=== PATIENT | female | born 1995 | race Caucasian/White ===

== ENCOUNTER 2017-03-27 19:24 | Emergency (ER) | payer OTHER ==
--- NOTE | 2017-03-27 20:14 | PDOC ---
Rapid Medical Evaluation Chief Complaint: Allergic Reaction Time Seen by Provider: 03/27/17 20:14 Medical Evaluation: Allergies Allergy/AdvReac Type Severity Reaction Status Date / Time No Known Allergies Allergy Verified 04/30/16 23:23 03/27/17 20:12 I Have performed a brief in-person evaluation of this patient. c/o hives to b/l axila while in running in the Gym. benedryl 2 tabs prior to arrival. pertinent physical exam findings: patient alert ox3, hives to b/l axila. no oral swelling , breath sounds clear. I have ordered the following: none the patient will proceed to the ED for further evaluation.
--- NOTE | 2017-03-27 20:20 | PDOC ---
History of Present Illness - General Chief Complaint: Allergic Reaction Stated Complaint: RASH Time Seen by Provider: 03/27/17 20:14 History Source: Patient Exam Limitations: No Limitations - History of Present Illness Initial Comments: 03/27/17 20:15 21 year old female c/o hives to b/l axilla prior to arrival. symptoms improved after Benadryl. symptoms have improved since arrival. Timing/Duration: reports: just prior to arrival Past History - Past Medical History Allergies/Adverse Reactions: Allergies Allergy/AdvReac Type Severity Reaction Status Date / Time No Known Allergies Allergy Verified 04/30/16 23:23 Home Medications: Ambulatory Orders NK [No Known Home Medication] 04/30/16 Other medical history: denies - Suicide/Smoking/Psychosocial Hx Smoking History: Never smoked Review of Systems - Review of Systems Able to Perform ROS?: Yes Is the patient limited Amharic proficient: No Constitutional: No: Symptoms Reported, See HPI, Chills, Diaphoresis, Fever, Loss of Appetite, Malaise, Night Sweats, Weakness, Weight Stable, Unintentional Wgt. Loss, Unexplained wgt Loss, Other Respiratory: No: Symptoms reported, See HPI, Cough, Orthopnea, Shortness of Breath, SOB with Exertion, SOB at Rest, Stridor, Wheezing, Productive cough, Hemoptysis, Other Neurological: Yes: Other (hives) Psychiatric: No: Anxiety, Depression, Frequent Crying, Stressors, Sleep Pattern Change, Emotional Problems, Mood Swings, Change in Appetite, Other *Physical Exam - Physical Exam General Appearance: Yes: Appropriately Dressed HEENT: positive: Other (uvula midline. no oral swelling) Respiratory/Chest: positive: Lungs Clear, Normal Breath Sounds Cardiovascular: positive: Regular Rhythm, Regular Rate Extremity: positive: Other (hives to axila) Integumentary: positive: Normal Color, Dry, Warm Neurologic: positive: Fully Oriented, Alert, Normal Mood/Affect Progress Note - Progress Note Progress Note: A: allergic reactions P; benadryl prn claritin prn *DC/Admit/Observation/Transfer Diagnosis at time of Disposition: Allergic reaction Qualifiers: Encounter type: initial encounter Qualified Code(s): T78.40XA - Allergy, unspecified, initial encounter - Discharge Dispostion Disposition: HOME - Referrals Referrals: Nura Britton MD [Primary Care Provider] - - Patient Instructions Printed Discharge Instructions: DI for Adverse Drug Reaction -- Allergic Additional Instructions: take benedryl every 8 hours as needed take claritin once daily. follow up with your doctor. retunr to the ED if symptoms worsen. - Post Discharge Activity
[2017-03-27 20:24] VITALS: BP 128/69; PULSE 71; TEMP 97.9; BMI 29.2
== END 2017-03-27 20:28 | disposition home or self-care (01) ==
LOC: JER 19:24
DX: L50.0 Allergic urticaria (principal); T78.40XA Allergy, unspecified, initial encounter
CPT/HCPCS: 99282-25

== ENCOUNTER 2018-07-04 17:59 | Emergency (ER) | payer OTHER ==
[2018-07-04 18:05] VITALS: BP 115/73; PULSE 66; TEMP 97.9; BMI 29.2
[2018-07-04] MEDS ORDERED: SODIUM CHLORIDE 1,000 ML IV STA (20:03)
[2018-07-04] MEDS ORDERED: ONDANSETRON 4 MG/2 ML VIAL IVPUSH ONE (20:03)
[2018-07-04] MEDS ORDERED: ONDANSETRON 4 MG/2 ML VIAL ONE (20:27)
[2018-07-04 20:38] LABS: BASO % 0.5 % (0-2.0); EOS % 1.3 % (0-4.5); HEMATOCRIT 36.1 % (32.4-45.2); HEMOGLOBIN 12.4 GM/dL (10.7-15.3); LYMPH % 32.2 % (8-40); MCH 30.8 pg (25.7-33.7); MCHC 34.4 g/dl (32.0-36.0); MEAN CELL VOLUME 89.6 fl (80-96); MEAN PLT VOLUME 8.5 fl (7.5-11.1); MONO % 6.4 % (3.8-10.2); NEUT % 59.6 % (42.8-82.8); PLATELET COUNT 230 K/MM3 (134-434); RBC 4.03 M/mm3 (3.60-5.2); RDW 13.4 % (11.6-15.6); WHITE BLOOD COUNT 7.2 K/mm3 (4.0-10.0)
[2018-07-04 20:40] LABS: URINE APPEARANCE CLEAR; URINE BILIRUBIN NEGATIVE (<2.0 mg/dL); URINE COLOR DKYELLOW; URINE GLUCOSE (UA) NEGATIVE (NEGATIVE); URINE KETONE TRACE (NEGATIVE); URINE LEUK ESTERASE NEGATIVE (NEGATIVE); URINE NITRITE NEGATIVE (NEGATIVE); URINE PROTEIN 1+ (NEGATIVE); URINE UROBILINOGEN 4.0 E.U/dl mg/dL (0.2-1.0)
[2018-07-04 20:42] LABS: HCG,QUALITATIVE URINE Negative
[2018-07-04 20:53] LABS: EPI CELLS RARE /HPF (FEW); URINE MUCUS MANY
[2018-07-04 21:08] LABS: ALBUMIN 3.9 g/dl (3.4-5.0); ALK PHOS 79 U/L (45-117); ANION GAP 5 MMOL/L (8-16); BILIRUBIN,TOTAL 0.3 mg/dL (0.2-1); BLOOD UREA NITROGEN 8 mg/dL (7-18); CALCIUM 8.7 mg/dL (8.5-10.1); CHLORIDE 104 mmol/L (98-107); CO2 28 mmol/L (21-32); CREATININE 0.6 mg/dL (0.55-1.3); GLUCOSE,RANDOM 104 mg/dL (74-106); LIPASE 129 U/L (73-393); POTASSIUM 3.8 mmol/L (3.5-5.1); SGOT/AST 15 U/L (15-37); SGPT/ALT 18 U/L (13-61); SODIUM 136 mmol/L (136-145); TOT PROT 7.8 g/dl (6.4-8.2)
--- NOTE | 2018-07-04 21:11 | PDOC ---
History of Present Illness - General History Source: Patient, Parent(s) Exam Limitations: No Limitations <NancyLashae - Last Filed: 07/04/18 22:03> <Cathie Celaya - Last Filed: 07/06/18 01:15> - General Chief Complaint: Nausea/Vomiting Stated Complaint: VOMITING Time Seen by Provider: 07/04/18 19:50 Past History - Past Medical History Anemia: No Asthma: No Cancer: No Cardiac Disorders: No CVA: No COPD: No DVT: No Dementia: No Diabetes: No Dialysis: No GI Disorders: No Disorders: No HTN: No Hypercholesterolemia: No Kidney Stones: No Liver Disease: No Psychiatric Problems: No Seizures: No Thyroid Disease: No Lung CA: No - Surgical History Abdominal Surgery: No Appendectomy: No Cardiac Surgery: No Cholecystectomy: No Gastric Stapling: No GI Surgery: No Lung Surgery: No Neurologic Surgery: No - Immunization History Immunization Up to Date: Yes - Suicide/Smoking/Psychosocial Hx Smoking History: Never smoked Hx Alcohol Use: No Drug/Substance Use Hx: No Substance Use Type: None <Lashae Cruz - Last Filed: 07/04/18 22:03> <Cathie Celaya - Last Filed: 07/06/18 01:15> - Past Medical History Allergies/Adverse Reactions: Allergies Allergy/AdvReac Type Severity Reaction Status Date / Time No Known Allergies Allergy Verified 07/04/18 18:05 Home Medications: Ambulatory Orders NK [No Known Home Medication] 04/30/16 *Physical Exam - Vital Signs Last Vital Signs Temp Pulse Resp BP Pulse Ox 97.9 F 66 18 115/73 99 07/04/18 18:02 07/04/18 18:02 07/04/18 18:02 07/04/18 18:02 07/04/18 18:02 - Physical Exam General Appearance: No: Apparent Distress Respiratory/Chest: positive: Lungs Clear, Normal Breath Sounds. negative: Respiratory Distress Cardiovascular: positive: Regular Rhythm, Regular Rate, S1, S2. negative: Murmur Gastrointestinal/Abdominal: positive: Normal Bowel Sounds, Soft. negative: Tender, Distended, Guarding, Rebound Neurologic: positive: Alert, Normal Mood/Affect <Lashae Cruz - Last Filed: 07/04/18 22:03> - Vital Signs Last Vital Signs Temp Pulse Resp BP Pulse Ox 97.9 F 66 18 115/73 99 07/04/18 18:02 07/04/18 18:02 07/04/18 18:02 07/04/18 18:02 07/04/18 18:02 <Cathie Celaya - Last Filed: 07/06/18 01:15> Moderate Sedation - Procedure Monitoring Vital Signs: Procedure Monitoring Vital Signs Temperature 97.9 F 07/04/18 18:02 Pulse Rate 66 07/04/18 18:02 Respiratory Rate 18 07/04/18 18:02 Blood Pressure 115/73 07/04/18 18:02 O2 Sat by Pulse Oximetry (%) 99 07/04/18 18:02 <Lashae Cruz - Last Filed: 07/04/18 22:03> - Procedure Monitoring Vital Signs: Procedure Monitoring Vital Signs Temperature 97.9 F 07/04/18 18:02 Pulse Rate 66 07/04/18 18:02 Respiratory Rate 18 07/04/18 18:02 Blood Pressure 115/73 07/04/18 18:02 O2 Sat by Pulse Oximetry (%) 99 07/04/18 18:02 <Cathie Celaya - Last Filed: 07/06/18 01:15> ED Treatment Course - LABORATORY CBC & Chemistry Diagram: 07/04/18 20:15 07/04/18 20:15 - ADDITIONAL ORDERS Additional order review: Laboratory Results 07/04/18 07/04/18 07/04/18 20:15 20:15 20:15 Sodium 136 Potassium 3.8 Chloride 104 Carbon Dioxide 28 Anion Gap 5 L BUN 8 Creatinine 0.6 Creat Clearance w eGFR > 60 Random Glucose 104 Calcium 8.7 Total Bilirubin 0.3 AST 15 ALT 18 Alkaline Phosphatase 79 Total Protein 7.8 Albumin 3.9 Lipase 129 Beta HCG, Quant < 1.0 Urine Color Dkyellow Urine Appearance Clear Urine pH 5.0 Ur Specific [place] 1.033 Urine Protein 1+ H Urine Glucose (UA) Negative Urine Ketones Trace H Urine Blood 2+ H Urine Nitrite Negative Urine Bilirubin Negative Urine Urobilinogen 4.0 e.u/dl H Ur Leukocyte Esterase Negative Urine WBC (Auto) 2 Urine RBC (Auto) 174 Ur Epithelial Cells Rare Urine Mucus Many Urine HCG, Qual Negative 07/04/18 20:15 RBC 4.03 MCV 89.6 MCHC 34.4 RDW 13.4 MPV 8.5 Neutrophils % 59.6 D Lymphocytes % 32.2 D Monocytes % 6.4 Eosinophils % 1.3 Basophils % 0.5 - Medications Given in the ED: ED Medications Discontinued Medications Generic Name Dose Route Start Last Admin Trade Name Freq PRN Reason Stop Dose Admin Sodium Chloride 1,000 mls @ 1,000 mls/hr 07/04/18 20:03 07/04/18 20:31 Normal Saline - IV 07/04/18 21:02 1,000 mls/hr ASDIR STA Administration Ondansetron HCl 4 mg 07/04/18 20:03 07/04/18 20:31 Zofran Injection IVPUSH 07/04/18 20:04 4 mg ONCE ONE Administration <Lashae Cruz - Last Filed: 07/04/18 22:03> - LABORATORY CBC & Chemistry Diagram: 07/04/18 20:15 07/04/18 20:15 - ADDITIONAL ORDERS Additional order review: 07/04/18 20:15 RBC 4.03 MCV 89.6 MCHC 34.4 RDW 13.4 MPV 8.5 Neutrophils % 59.6 D Lymphocytes % 32.2 D Monocytes % 6.4 Eosinophils % 1.3 Basophils % 0.5 - Medications Given in the ED: ED Medications Discontinued Medications Generic Name Dose Route Start Last Admin Trade Name Freq PRN Reason Stop Dose Admin Sodium Chloride 1,000 mls @ 1,000 mls/hr 07/04/18 20:03 07/04/18 20:31 Normal Saline - IV 07/04/18 21:02 1,000 mls/hr ASDIR STA Administration Ondansetron HCl 4 mg 07/04/18 20:03 07/04/18 20:31 Zofran Injection IVPUSH 07/04/18 20:04 4 mg ONCE ONE Administration <Cathie Celaya - Last Filed: 07/06/18 01:15> Medical Decision Making - Medical Decision Making 23 y/o F with no sig pmh presents with NBNB emesis x 1 week. Is able to keep down liquids, but throws up food. Mentions having vaginal bleeding today, which could be the start of her menstrual cycle, but she is not certain (LNMP was 06/04; patient has regular cycles). Denies fever, chills, sob, cp, abd pain, diarrhea, urinary complaints Will check for Plan: Labs, IVF, Zofran, UCG, UA 07/04/18 21:09 Patient not Likely on her menstrual cycle Patient appears well and passed PO challenge here Stable for dc 07/04/18 22:03 <Lashae Cruz - Last Filed: 07/04/18 22:03> *DC/Admit/Observation/Transfer - Discharge Dispostion Decision to Admit order: No <Lashae Cruz - Last Filed: 07/04/18 22:03> - Attestations Physician Attestion: I reviewed the case with the mid-level practitioner and agree with the mid- level practitioner's assessment, diagnosis and disposition. <Cathie Celaya - Last Filed: 07/06/18 01:15> Diagnosis at time of Disposition: Vomiting Qualifiers: Vomiting type: unspecified Vomiting Intractability: non-intractable Nausea presence: with nausea Qualified Code(s): R11.2 - Nausea with vomiting, unspecified - Discharge Dispostion Disposition: HOME Condition at time of disposition: Improved - Patient Instructions Printed Discharge Instructions: DI for Vomiting -- Adult Additional Instructions: Thank you for choosing [facility]. It was a pleasure taking care of you. Stay hydrated - drink at least 2 L of water daily Eat light food like bananas, rice, applesauce, toast, plain yogurt, soup until feeling better Follow-up with your regular doctor in 2-3 days. Return to the Emergency Department if your symptoms worsen or persist or have other concerning symptoms.
== END 2018-07-04 22:20 | disposition home or self-care (01) ==
LOC: JER 17:59
PROC: 3E033GC Introduction of Other Therapeutic Substance into Peripheral Vein, Percutaneous Approach (ICD-10-PCS; principal; 2018-07-04)
DX: R11.2 Nausea with vomiting, unspecified (principal)
CPT/HCPCS: 36415; 80053; 81003; 81015; 83690; 84702; 84703; 85025; 86850; 86900; 86901; 87086; 87186; 96374; 99282-25; J7030

== ENCOUNTER 2018-07-08 16:38 | Emergency (ER) | payer OTHER ==
[2018-07-08 17:09] VITALS: BP 96/66; PULSE 63; TEMP 97.8; BMI 29.2
--- NOTE | 2018-07-08 17:14 | PDOC ---
Rapid Medical Evaluation Time Seen by Provider: 07/08/18 17:00 Medical Evaluation: Allergies Allergy/AdvReac Type Severity Reaction Status Date / Time No Known Allergies Allergy Verified 07/04/18 18:05 Vital Signs Temp Pulse Resp BP Pulse Ox 97.8 F 63 18 96/66 100 07/08/18 17:06 07/08/18 17:06 07/08/18 17:06 07/08/18 17:06 07/08/18 17:06 07/08/18 17:09 I have performed a brief in-person evaluation of this patient. The patient presents with a chief complaint of:R flank pain w/ n/v. Seen in ED for vomiting. After pt was discharged, ucx came back positive. Was called back by me this am and had levaquin sent to her pharmacy. Pt then called me back stating she continued to have n/v and developed L flank pain last night. No fever. Told to return for eval. Has not yet started levaquin Pertinent physical exam findings:BP 96/66, well jessica I have ordered the following:Labs/ua The patient will proceed to the ED for further evaluation. 07/08/18 17:12 Discharge Disposition - Diagnosis Left flank pain - Referrals - Patient Instructions - Post Discharge Activity
== END 2018-07-08 19:16 | disposition left against medical advice (07) ==
LOC: JER 16:38
DX: R10.31 Right lower quadrant pain (principal)
CPT/HCPCS: 99282-25

== ENCOUNTER 2018-07-09 19:01 | Emergency (ER) | payer OTHER ==
--- NOTE | 2018-07-09 19:09 | PDOC ---
Rapid Medical Evaluation Medical Evaluation: Allergies Allergy/AdvReac Type Severity Reaction Status Date / Time No Known Allergies Allergy Verified 07/08/18 17:09 07/09/18 19:08 The patient presents with a chief complaint of: n/v/ x 2 weeks, intermittent lbp now radiating llq I have performed a brief in-person evaluation of this patient; Pertinent physical exam findings: vss, no cva I have ordered the following: labs and urine The patient will proceed to the ED for further evaluation. Discharge Disposition - Diagnosis Vomiting - Referrals - Patient Instructions - Post Discharge Activity
[2018-07-09 19:19] VITALS: BP 119/63; PULSE 73; TEMP 98.4; BMI 29.2
[2018-07-09 19:56] LABS: BASO % 0.6 % (0-2.0); HEMATOCRIT 39.6 % (32.4-45.2); HEMOGLOBIN 13.6 GM/dL (10.7-15.3); LYMPH % 40.7 % (8-40); MCH 30.6 pg (25.7-33.7); MCHC 34.3 g/dl (32.0-36.0); MEAN CELL VOLUME 89.2 fl (80-96); MEAN PLT VOLUME 8.7 fl (7.5-11.1); MONO % 7.3 % (3.8-10.2); NEUT % 49.4 % (42.8-82.8); PLATELET COUNT 255 K/MM3 (134-434); RBC 4.43 M/mm3 (3.60-5.2); RDW 13.1 % (11.6-15.6); WHITE BLOOD COUNT 6.1 K/mm3 (4.0-10.0)
[2018-07-09 20:17] LABS: ALBUMIN 4.2 g/dl (3.4-5.0); ALK PHOS 89 U/L (45-117); ANION GAP 6 MMOL/L (8-16); BILIRUBIN,TOTAL 0.3 mg/dL (0.2-1); BLOOD UREA NITROGEN 8 mg/dL (7-18); CALCIUM 9.4 mg/dL (8.5-10.1); CHLORIDE 104 mmol/L (98-107); CO2 28 mmol/L (21-32); CREATININE 0.6 mg/dL (0.55-1.3); GLUCOSE,RANDOM 75 mg/dL (74-106); LIPASE 126 U/L (73-393); MAGNESIUM 2.2 mg/dL (1.8-2.4); POTASSIUM 4.2 mmol/L (3.5-5.1); SGOT/AST 23 U/L (15-37); SGPT/ALT 25 U/L (13-61); SODIUM 138 mmol/L (136-145); TOT PROT 8.6 g/dl (6.4-8.2)
[2018-07-09 20:35] LABS: URINE APPEARANCE CLEAR; URINE BILIRUBIN NEGATIVE (<2.0 mg/dL); URINE COLOR YELLOW; URINE GLUCOSE (UA) NEGATIVE (NEGATIVE); URINE KETONE NEGATIVE (NEGATIVE); URINE LEUK ESTERASE NEGATIVE (NEGATIVE); URINE NITRITE NEGATIVE (NEGATIVE); URINE PROTEIN NEGATIVE (NEGATIVE); URINE UROBILINOGEN 4.0 E.U/dl mg/dL (0.2-1.0)
[2018-07-09] MEDS ORDERED: SODIUM CHLORIDE 1,000 ML IV STA (20:35)
[2018-07-09] MEDS ORDERED: ONDANSETRON 4 MG/2 ML VIAL IVPUSH ONE (20:35)
[2018-07-09 20:36] LABS: HCG,QUALITATIVE URINE Negative
--- NOTE | 2018-07-09 20:43 | PDOC ---
History of Present Illness - General Chief Complaint: Pain, Acute Stated Complaint: ABD PAIN/VOMITING Time Seen by Provider: 07/09/18 20:24 History Source: Patient, Old Records Exam Limitations: No Limitations - History of Present Illness Travel History: No Initial Comments: 07/09/18 20:35 HISTORY OF PRESENT ILLNESS: 23-year-old woman he denies medical history presents emergency department for evaluation of 2 weeks of nonbilious nonbloody nausea and vomiting, one week a dull ache in her left sided back which is now progressed to left upper quadrant. Patient reports her pain is a 5/10 reports as a dull ache. She reports the pain is intermittent resolving completely without any alleviating or aggravating factors identified. Patient was seen and evaluated in this emergency department on 07/04 where she was able to tolerate PO 's in the emergency department. Patient reports her vomiting is worse when she eats greasy fatty foods. She reports no difficulties tolerating PO's when she drinks soap or eats bland diet. Patient reports she was noted to have a urinary tract infection on culture on her visit 07/04 and was prescribed Levaquin 500 mg daily for 3 days starting yesterday. Patient reports she has 1 more dose to complete therapy. Patient reports she is having unprotected vaginal and oral intercourse with one male partner over the past 6 months. She denies dyspareunia , vaginal discharge or vaginal pain. No recent travel or sick contacts. PAST MEDICAL HISTORY: Denies past medical history SURGICAL HISTORY: Denies ALLERGIES: No known drug allergies REVIEW OF SYSTEMS General/Constitutional: Denies fever or chills. Denies weakness, weight change. HEENT: Denies change in vision. Denies ear pain or discharge. Denies sore throat. Cardiovascular: Denies chest pain or shortness of breath. Respiratory: Denies cough, wheezing, or hemoptysis. Gastrointestinal: see HPI Genitourinary: Denies dysuria, frequency, or change in urination. Musculoskeletal: Denies joint or muscle swelling or pain. Denies neck or back pain. Skin and breasts: Denies rash or easy bruising. Neurologic: Denies headache, vertigo, loss of consciousness, or loss of sensation. Psychiatric: Denies depression or anxiety. Endocrine: Denies increased thirst. Denies abnormal weight change. Hematologic/Lymphatic: Denies anemia, easy bleeding, or history of blood clots. Allergic/Immunologic: Denies hives or skin allergy. Denies latex allergy. PHYSICAL EXAM General Appearance: Well-appearing, appropriately dressed. No apparent distress , no intoxication. HEENT: EOMI, PERRLA, normal ENT inspection, normal voice, TMs normal, pharynx normal. No conjunctival pallor. No photophobia, scleral icterus. Neck: Supple. Trachea midline. No tenderness, rigidity, carotid bruit, stridor , lymphadenopathy, or thyromegaly. Respiratory/Chest: Lungs CTAB. No shortness of breath, chest tenderness, respiratory distress, accessory muscle use. No crackles, rales, rhonchi, stridor , wheezing, dullness Cardiovascular: RRR. S1, S2. No JVD, murmur, bradycardia, tachycardia. Vascular Pulses: Dorsalis-Pedis (R): 2+, Dorsalis-Pedis (L): 2+ Gastrointestinal/Abdominal: Normal bowel sounds. Abdomen soft, non-distended. No tenderness or rebound tenderness. No organomegaly, pulsatile mass, guarding, hernia, hepatomegaly, splenomegaly. Lymphatic: No adenopathy, tenderness. Musculoskeletal/Extremities: Normal inspection. FROM of all extremities, normal capillary refill. Pelvis Stable. No CVA tenderness. No tenderness to extremities, pedal edema, swelling, erythema or deformity. Integumentary: Appropriate color, dry, warm. No cyanosis, erythema, jaundice or rash Neurologic: tow driver II-XII intact. Fully oriented, alert. Appropriate mood/affect. Motor strength 5/5. No appreciable EOM palsy, facial droop or sensory deficit. Past History - Past Medical History Allergies/Adverse Reactions: Allergies Allergy/AdvReac Type Severity Reaction Status Date / Time No Known Allergies Allergy Verified 07/09/18 19:09 Home Medications: Ambulatory Orders levoFLOXacin [Levaquin -] 250 mg PO DAILY #3 tablet 07/08/18 Ondansetron [Zofran Odt -] 4 mg SL TID #21 od.tablet 07/09/18 Anemia: No Asthma: No Cancer: No Cardiac Disorders: No CVA: No COPD: No DVT: No Dementia: No Diabetes: No Dialysis: No GI Disorders: No Disorders: No HTN: No Hypercholesterolemia: No Kidney Stones: No Liver Disease: No Psychiatric Problems: No Seizures: No Thyroid Disease: No Lung CA: No - Surgical History Abdominal Surgery: No Appendectomy: No Cardiac Surgery: No Cholecystectomy: No Gastric Stapling: No GI Surgery: No Lung Surgery: No Neurologic Surgery: No - Immunization History Immunization Up to Date: Yes - Suicide/Smoking/Psychosocial Hx Smoking History: Never smoked Hx Alcohol Use: No Drug/Substance Use Hx: No Substance Use Type: None *Physical Exam - Vital Signs Last Vital Signs Temp Pulse Resp BP Pulse Ox 98.4 F 73 16 119/63 100 07/09/18 19:10 07/09/18 19:10 07/09/18 19:10 07/09/18 19:10 07/09/18 19:10 Moderate Sedation - Procedure Monitoring Vital Signs: Procedure Monitoring Vital Signs Temperature 98.4 F 07/09/18 19:10 Pulse Rate 73 07/09/18 19:10 Respiratory Rate 16 07/09/18 19:10 Blood Pressure 119/63 07/09/18 19:10 O2 Sat by Pulse Oximetry (%) 100 07/09/18 19:10 ED Treatment Course - LABORATORY CBC & Chemistry Diagram: 07/09/18 19:27 07/09/18 19:27 - ADDITIONAL ORDERS Additional order review: Laboratory Results 07/09/18 19:27 Sodium 138 Potassium 4.2 Chloride 104 Carbon Dioxide 28 Anion Gap 6 L BUN 8 Creatinine 0.6 Creat Clearance w eGFR > 60 Random Glucose 75 Calcium 9.4 Magnesium 2.2 Total Bilirubin 0.3 AST 23 ALT 25 Alkaline Phosphatase 89 Total Protein 8.6 H Albumin 4.2 Lipase 126 07/09/18 19:27 RBC 4.43 MCV 89.2 MCHC 34.3 RDW 13.1 MPV 8.7 Neutrophils % 49.4 Lymphocytes % 40.7 H D Monocytes % 7.3 Eosinophils % 2.0 Basophils % 0.6 Medical Decision Making - Medical Decision Making 07/09/18 20:43 A/P: 23-year-old woman with LUQ and left back pain Laboratory testing done in rapid medical evaluation is unremarkable. Urinalysis and culture are still pending Urine culture performed on 07/04 reveals group B strep with a colony count of 20, 000-30,000. Patient absence of urinary tract symptoms at that time Given low colony count and urinalysis not suggestive of infection on last visit. Patient had a negative test on 07/04 and her menses had started on the same day. Normal saline 1 L Zofran 4 mg Oral trial Urine GC Reassess 07/09/18 21:57 Laboratory testing reveals no leukocytosis, anemia, normocytic wade or left leg abnormality. Urinalysis is not suggestive of urinary tract infection. Upon reevaluation patient noted to be eating pretzels and drinking water without difficulty. Repeat abdominal exam is unchanged with a benign exam. I will discharge the patient home to finish her antibiotics tomorrow with a prescription for Zofran. Patient is been instructed to follow-up with her primary doctor for reevaluation. I discussed the physical exam findings, ancillary test results and final diagnoses with the patient. I answered all of the patient's questions. The patient was satisfied with the care received and felt comfortable with the discharge plan and treatment plan. The patient will call their primary care physician within 24 hours to arrange follow-up and will return to the Emergency Department with any new, persistent or worsening symptoms. 07/09/18 21:59 *DC/Admit/Observation/Transfer Diagnosis at time of Disposition: Gastritis Qualifiers: Gastritis type: unspecified gastritis Chronicity: unspecified Gastritis bleeding: presence of bleeding unspecified Qualified Code(s): K29.70 - Gastritis , unspecified, without bleeding - Discharge Dispostion Disposition: HOME Condition at time of disposition: Stable Decision to Admit order: No - Prescriptions Prescriptions: Ondansetron [Zofran Odt -] 4 mg SL TID #21 od.tablet - Referrals - Patient Instructions Additional Instructions: Rest, drink lots of fluids: Teas, water, soups Raegan aldo, carbonated beverages for the bubbles May try peppermint teas Avoid heavy , spicy or fatty foods until symptoms have resolved Avoid contact with others until fevers and symptoms resolved Lots of handwashing and good hygiene Continue [id number] medications for symptomatic relief Tylenol or Motrin for fever and pain May use Zofran-one tablet dissolved on tongue as needed for nauseousness. May repeat times one every 8 hours Followup with private physician in one to 2 days as needed Return to emergency department for worsened symptoms, fevers, dehydration - Post Discharge Activity
== END 2018-07-09 22:25 | disposition home or self-care (01) ==
LOC: JER 19:01
PROC: 3E033GC Introduction of Other Therapeutic Substance into Peripheral Vein, Percutaneous Approach (ICD-10-PCS; principal; 2018-07-09)
PROC: 3E033GC Introduction of Other Therapeutic Substance into Peripheral Vein, Percutaneous Approach (ICD-10-PCS; 2018-07-09)
DX: K29.70 Gastritis, unspecified, without bleeding (principal)
CPT/HCPCS: 36415; 80053; 81003; 83690; 83735; 84703; 85025; 87491; 87591; 99282-25; J7030

== ENCOUNTER 2018-08-16 13:43 | Emergency (ER) | payer OTHER ==
[2018-08-16 13:53] VITALS: PULSE 76; BMI 31.1
[2018-08-16 14:54] LABS: BASO % 0.5 % (0-2.0); HEMATOCRIT 35.7 % (32.4-45.2); HEMOGLOBIN 11.8 GM/dL (10.7-15.3); LYMPH % 29.8 % (8-40); MCH 29.4 pg (25.7-33.7); MEAN PLT VOLUME 7.6 fl (7.5-11.1); MONO % 8.9 % (3.8-10.2); NEUT % 57.8 % (42.8-82.8); PLATELET COUNT 266 K/MM3 (134-434); RBC 4.01 M/mm3 (3.60-5.2); RDW 13.2 % (11.6-15.6); WHITE BLOOD COUNT 6.4 K/mm3 (4.0-10.0)
[2018-08-16 15:22] LABS: ALBUMIN 3.9 g/dl (3.4-5.0); ALK PHOS 84 U/L (45-117); ANION GAP 6 MMOL/L (8-16); BILIRUBIN,TOTAL 0.4 mg/dL (0.2-1); BLOOD UREA NITROGEN 12 mg/dL (7-18); CALCIUM 8.4 mg/dL (8.5-10.1); CHLORIDE 104 mmol/L (98-107); CO2 30 mmol/L (21-32); CREATININE 0.7 mg/dL (0.55-1.3); GLUCOSE,RANDOM 94 mg/dL (74-106); SGOT/AST 18 U/L (15-37); SGPT/ALT 19 U/L (13-61); SODIUM 139 mmol/L (136-145); TOT PROT 7.7 g/dl (6.4-8.2)
--- NOTE | 2018-08-16 15:28 | PDOC ---
History of Present Illness - General Chief Complaint: Vaginal Bleeding Stated Complaint: VAGINAL BLEED 6 WKS PRG Time Seen by Provider: 08/16/18 14:28 History Source: Patient Exam Limitations: Clinical Condition - History of Present Illness Initial Comments: 08/16/18 15:28 Patient with LMP Jul 04 with no past medical history present with complaint of vaginal bleeding using one pad per day since yesterday multiple times yesterday and unable to keep food down yesterday until today. Denies any vomiting today. Denies chest pain, dizziness, palpitation, fever, chills. Patient did home test that was positive but never followed up with PHP MYSQL DEVELOPER on . Patient never had ultrasound done of the . Denies any other symptoms Timing/Duration: 24 hours Past History - Past Medical History Allergies/Adverse Reactions: Allergies Allergy/AdvReac Type Severity Reaction Status Date / Time No Known Allergies Allergy Verified 08/16/18 13:52 Home Medications: Ambulatory Orders Pnv No.121/Iron/Folic Acid [ Multivitamin Tablet] 1 each PO DAILY Anemia: No Asthma: No Cancer: No Cardiac Disorders: No CVA: No COPD: No DVT: No Dementia: No Diabetes: No Dialysis: No GI Disorders: No Disorders: No HTN: No Hypercholesterolemia: No Kidney Stones: No Liver Disease: No Psychiatric Problems: No Seizures: No Thyroid Disease: No Lung CA: No - Surgical History Abdominal Surgery: No Appendectomy: No Cardiac Surgery: No Cholecystectomy: No Gastric Stapling: No GI Surgery: No Lung Surgery: No Neurologic Surgery: No - Reproductive History Is Patient Now?: Yes (#): 1 Para: 0 - Immunization History Immunization Up to Date: Yes - Suicide/Smoking/Psychosocial Hx Smoking History: Never smoked Hx Alcohol Use: No Drug/Substance Use Hx: No Substance Use Type: None Review of Systems - Review of Systems Able to Perform ROS?: Yes Is the patient limited Argentine proficient: No Constitutional: No: Chills, Fever, Weakness HEENTM: No: Symptoms Reported Respiratory: No: Symptoms reported Cardiac (ROS): No: Symptoms Reported, See HPI, Chest Pain, Edema, Irregular Heart Rate, Lightheadedness, Palpitations, Syncope, Chest Tightness, Other ABD/GI: Yes: See HPI, Nausea, Vomiting. No: Constipated, Diarrhea, Abdominal cramping : Yes: See HPI, Other (vaginal bleeding). No: Burning, Dysuria, Frequency, Flank Pain Neurological: No: Symptoms reported, Headache, Weakness, Dizziness All Other Systems: Reviewed and Negative *Physical Exam - Vital Signs Last Vital Signs Temp Pulse Resp BP Pulse Ox 98.7 F 76 18 122/70 98 08/16/18 13:49 08/16/18 13:49 08/16/18 13:49 08/16/18 13:49 08/16/18 13:49 - Physical Exam Comments: 08/16/18 15:25 GENERAL: Well developed, well nourished. Awake and alert. No acute distress. NECK: Full ROM. CARDIOVASCULAR: Regular rate and rhythm. No murmurs, rubs, or gallops. Distal pulses are 2+ and symmetric. PULMONARY: No evidence of respiratory distress. Lungs clear to auscultation bilaterally. No wheezing, rales or rhonchi. ABDOMINAL: Soft. Non-tender. Non-distended. No rebound or guarding. No organomegaly. Normoactive bowel sounds. : small amount of dark blood in vaginal vault. no active bleeding or pooling of blood in vault. no visible lesions. cervical os closed. no CMT MUSCULOSKELETAL Normal range of motion at all joints. SKIN: Warm and dry. Normal capillary refill. No rashes. NEUROLOGICAL: Alert, awake, appropriate. Gait is normal without ataxia. PSYCHIATRIC: Cooperative. Good eye contact. Appropriate mood General Appearance: Yes: Nourished, Appropriately Dressed. No: Apparent Distress ED Treatment Course - LABORATORY CBC & Chemistry Diagram: 08/16/18 14:50 08/16/18 14:50 - ADDITIONAL ORDERS Additional order review: 08/16/18 14:50 RBC 4.01 MCV 89.0 MCHC 33.0 RDW 13.2 MPV 7.6 D Neutrophils % 57.8 Lymphocytes % 29.8 D Monocytes % 8.9 Eosinophils % 3.0 Basophils % 0.5 - RADIOLOGY Radiology Studies Ordered: Category Date Time Status TRANSVAGINAL US PREG [US] Stat Ultrasound 08/16/18 14:46 Ordered Medical Decision Making - Medical Decision Making 08/16/18 15:30 Patient with LMP Jul 04 with no past medical history present with complaint of vaginal bleeding using one pad per day since yesterday multiple times yesterday and unable to keep food down yesterday until today. Denies any vomiting today. Denies chest pain, dizziness, palpitation, fever, chills. Patient did home test that was positive but never followed up with PHP MYSQL DEVELOPER on . Patient never had ultrasound done of the . Denies any other symptoms. Exam significant for small amount of dark blood in the vaginal vault with no active vaginal bleeding. No visible lesion vaginal vault. Cervical os closed. No CMT on exam. CBC, CMP, beta hCG and type and screen labs ordered. Transvaginal ultrasound ordered to follow with . IV hydration with 1L NS ordered. Treat based on lab and imaging results 08/16/18 15:42 CBC,CMP labs unremarkable. beta hcg 222. pelvic US pending 08/16/18 18:19 pelvic US with no IUP or adnexa mass which is expected given low hcg. Patient stable for discharge with rpt beta hcg in 48hrs and strict follow-up *DC/Admit/Observation/Transfer Diagnosis at time of Disposition: Threatened in early - Discharge Dispostion Disposition: HOME Condition at time of disposition: Stable Decision to Admit order: No - Referrals Referrals: Lorelei Sosa MD [Primary Care Provider] - - Patient Instructions Printed Discharge Instructions: DI for Threatened Additional Instructions: Your labs was normal. your pregnany hormone level was 222. ultrasound shows no ectopic however it does not show any intra-uterine and this could be due to early with low hormone level. Come back to ER or follow-up with PHP MYSQL DEVELOPER in 2 days for repeat hormone level as discussed. Come back to ED if worsening vaginal bleeding. Take tylenol as needed for pain - Post Discharge Activity
[2018-08-16] MEDS ORDERED: SODIUM CHLORIDE 1,000 ML IV STA (15:38)
[2018-08-16 17:24] VITALS: BP 107/71; TEMP 97.8
== END 2018-08-16 17:25 | disposition home or self-care (01) ==
LOC: JER 13:43
PROC: 3E0337Z Introduction of Electrolytic and Water Balance Substance into Peripheral Vein, Percutaneous Approach (ICD-10-PCS; principal; 2018-08-16)
DX: O26.891 Other specified pregnancy related conditions, first trimester (principal); O20.0 Threatened abortion; Z3A.01 Less than 8 weeks gestation of pregnancy
CPT/HCPCS: 36415; 76817-TC; 80053; 84702; 85025; 86850; 86900; 86901; 96360; 99284-25; J7030

== ENCOUNTER 2018-08-18 16:09 | Emergency (ER) | payer OTHER ==
--- NOTE | 2018-08-18 16:17 | PDOC ---
Rapid Medical Evaluation Time Seen by Provider: 08/18/18 16:15 Medical Evaluation: Allergies Allergy/AdvReac Type Severity Reaction Status Date / Time No Known Allergies Allergy Verified 08/18/18 16:15 08/18/18 16:15 I have performed a brief in-person evaluation of this patient. The patient presents with a chief complaint of: f/u labs and sono. LMP- 07/04 Pertinent physical exam findings: deferred I have ordered the following: labs, TVUS The patient will proceed to the ED for further evaluation. 08/18/18 16:16 Discharge Disposition - Diagnosis Vaginal bleeding affecting early - Referrals - Patient Instructions - Post Discharge Activity
[2018-08-18 16:20] VITALS: BP 114/69; PULSE 77; BMI 30.1
--- NOTE | 2018-08-18 17:06 | PDOC ---
History of Present Illness - General [place] Complaint[place] [facility] [place] Complaint: RETURN FOR BLOOD WORK Time Seen by Provider: 08/18/18 16:15 History Source: Patient Exam Limitations: Clinical Condition - History of Present Illness Initial Comments: 08/18/18 17:06 Patient with no significant past medical history LMP July 04@ 6 weeks present for repeat beta hCG after presenting 2 days ago with vaginal bleeding smoking one pack per day with positive test. She reported vaginal spotting using one pack per day is last visit. Denies nausea, vomiting, weakness, palpitation, shortness of breath or abdominal pains Timing/Duration: other (4 days) Past History - Past Medical History Allergies/Adverse Reactions: Allergies Allergy/AdvReac Type Severity Reaction Status Date / Time No Known Allergies Allergy Verified 08/18/18 16:20 Home Medications: Ambulatory Orders Pnv No.121/Iron/Folic Acid [ Multivitamin Tablet] 1 each PO DAILY Anemia: No Asthma: No Cancer: No Cardiac Disorders: No CVA: No COPD: No DVT: No Dementia: No Diabetes: No Dialysis: No GI Disorders: No Disorders: No HTN: No Hypercholesterolemia: No Kidney Stones: No Liver Disease: No Psychiatric Problems: No Seizures: No Thyroid Disease: No Lung CA: No - Surgical History Abdominal Surgery: No Appendectomy: No Cardiac Surgery: No Cholecystectomy: No Gastric Stapling: No GI Surgery: No Lung Surgery: No Neurologic Surgery: No - Reproductive History (#): 1 Para: 0 - Immunization History Immunization Up to Date: Yes - Suicide/Smoking/Psychosocial Hx Smoking History: Never smoked Hx Alcohol Use: No Drug/Substance Use Hx: No Substance Use Type: None Review of Systems - Review of Systems Able to Perform ROS?: Yes Is the patient limited Divehi proficient: No Constitutional: No: Weakness HEENTM: No: Symptoms Reported Respiratory: No: Symptoms reported Cardiac (ROS): No: Symptoms Reported ABD/GI: No: Nausea, Vomiting : Yes: See HPI, Other (vaginal spotting). No: Frequency, Flank Pain, Pain Musculoskeletal: No: Symptoms Reported Integumentary: No: Change in Color Neurological: No: Headache, Dizziness All Other Systems: Reviewed and Negative *Physical Exam - Vital Signs Last Vital Signs Temp Pulse Resp BP Pulse Ox 77 18 114/69 08/18/18 16:15 08/18/18 16:15 08/18/18 16:15 - Physical Exam General Appearance: Yes: Nourished, Appropriately Dressed. No: Apparent Distress HEENT: positive: Normal ENT Inspection Neck: positive: Supple Respiratory/Chest: positive: Lungs Clear, Normal Breath Sounds. negative: Respiratory Distress, Accessory Muscle Use Cardiovascular: positive: Regular Rhythm, Regular Rate. negative: Murmur Female Pelvic Exam: positive: normal external exam, cervical os closed Gastrointestinal/Abdominal: positive: Normal Bowel Sounds, Flat, Soft. negative : Tender Musculoskeletal: positive: Normal Inspection Extremity: positive: Normal Capillary Refill, Normal Inspection Integumentary: positive: Normal Color Neurologic: positive: Fully Oriented, Alert, Normal Mood/Affect, Normal Response ED Treatment Course - LABORATORY CBC & Chemistry Diagram: 08/18/18 17:00 Medical Decision Making - Medical Decision Making 08/18/18 17:08 Patient with no significant past medical history LMP July 04@ 6 weeks present for repeat beta hCG after presenting 2 days ago with vaginal bleeding smoking one pack per day with positive test. She reported vaginal spotting using one pack per day is last visit. Denies nausea, vomiting, weakness, palpitation, shortness of breath or abdominal pains. Symptoms likely early versus threatened versus failed . Beta hCG and CBC lab ordered. Treat based on lab results 08/18/18 18:14 beta hcg today is 55 from 220 48hrs ago. symptoms likely spontaneous AB with complete since no was seen on pelvic U/S 2 days ago. Patient will be treated conservatively for complete with SIGNAL MAINTAINER follow-up in 1 week for repeat hcg *DC/Admit/Observation/Transfer Diagnosis at time of Disposition: Vaginal bleeding affecting early , Complete - Discharge Dispostion Disposition: HOME Condition at time of disposition: Stable Decision to Admit order: No - Referrals Referrals: Venus Nath MD [Staff Physician] - - Patient Instructions Printed Discharge Instructions: Miscarriage Additional Instructions: Your hormone level was 55 from 220 two days which is an indication of spontaneous . Follow-up with SIGNAL MAINTAINER as discussed in 1 week for repeat hormone to make sure it is negative. Take motrin as needed for pain - Post Discharge Activity
[2018-08-18 17:12] LABS: BASO % 0.6 % (0-2.0); EOS % 2.7 % (0-4.5); HEMATOCRIT 35.9 % (32.4-45.2); HEMOGLOBIN 11.9 GM/dL (10.7-15.3); LYMPH % 32.6 % (8-40); MCH 29.6 pg (25.7-33.7); MCHC 33.1 g/dl (32.0-36.0); MEAN CELL VOLUME 89.4 fl (80-96); MEAN PLT VOLUME 7.9 fl (7.5-11.1); MONO % 8.1 % (3.8-10.2); PLATELET COUNT 275 K/MM3 (134-434); RBC 4.01 M/mm3 (3.60-5.2); RDW 13.3 % (11.6-15.6); WHITE BLOOD COUNT 7.9 K/mm3 (4.0-10.0)
== END 2018-08-18 18:33 | disposition home or self-care (01) ==
LOC: JER 16:09 → JERFT 16:09
DX: O26.891 Other specified pregnancy related conditions, first trimester (principal); O03.9 Complete or unspecified spontaneous abortion without complication; Z3A.01 Less than 8 weeks gestation of pregnancy
CPT/HCPCS: 36415; 84702; 85025; 99281-25

== ENCOUNTER 2018-09-17 21:34 | Emergency (ER) | payer OTHER ==
--- NOTE | 2018-09-17 21:47 | PDOC ---
Rapid Medical Evaluation Chief Complaint: Pain, Acute Time Seen by Provider: 09/17/18 21:46 Medical Evaluation: Allergies Allergy/AdvReac Type Severity Reaction Status Date / Time No Known Allergies Allergy Verified 08/18/18 16:20 09/17/18 21:49 I have performed a brief in-person evaluation of this patient. The patient presents with a chief complaint of: h/o spont 2 months ago presenting with complains of cramping lower abdominal pains with positive home test. Patient report she never got her menses after last miscarriage 2 months ago and tested pos for preg today Pertinent physical exam findings: A&O in NAD I have ordered the following: CBC,CMP, beta hcg, transvaginal US The patient will proceed to the ED for further evaluation. Discharge Disposition - Diagnosis Abdominal pain Qualifiers: Abdominal location: unspecified location Qualified Code(s): R10.9 - Unspecified abdominal pain - Discharge Dispostion Condition at time of disposition: Stable - Referrals - Patient Instructions - Post Discharge Activity
[2018-09-17 21:48] VITALS: BP 119/63; PULSE 79; TEMP 98.9; BMI 32.4
[2018-09-17 23:16] LABS: BASO % 0.5 % (0-2.0); EOS % 2.2 % (0-4.5); HEMATOCRIT 34.8 % (32.4-45.2); HEMOGLOBIN 11.4 GM/dL (10.7-15.3); LYMPH % 35.5 % (8-40); MCH 29.1 pg (25.7-33.7); MCHC 32.7 g/dl (32.0-36.0); MEAN PLT VOLUME 7.9 fl (7.5-11.1); MONO % 7.5 % (3.8-10.2); NEUT % 54.3 % (42.8-82.8); PLATELET COUNT 263 K/MM3 (134-434); RBC 3.91 M/mm3 (3.60-5.2); RDW 13.4 % (11.6-15.6); WHITE BLOOD COUNT 8.5 K/mm3 (4.0-10.0)
--- NOTE | 2018-09-17 23:17 | PDOC ---
History of Present Illness - General Chief Complaint: Pain, Acute Stated Complaint: ABDOMINAL PAIN LEFT SIDE/ Time Seen by Provider: 09/17/18 21:46 History Source: Patient Exam Limitations: No Limitations - History of Present Illness Travel History: No Initial Comments: 09/17/18 23:06 HISTORY OF PRESENT ILLNESS: This is a 23-year-old woman is 2 para 0 presents emergency department for evaluation of left pelvic pain starting earlier today. Patient describes the pain as 8 strong menstrual cramp located in the left pelvic region. She denies any aggravating or alleviating factors. Nature of the pain is intermittent. Patient reports her last menstrual period was 07/04 for which she was positive on a home test. Patient reports she had vaginal bleeding with a miscarriage on 08/15. She has not followed up with NON PROFIT FINANCIAL CONTROLLER after her vaginal bleeding at that time. Patient now with a positive home test. She denies any vaginal bleeding. No recent travel or sick contacts. PAST MEDICAL HISTORY: Denies past medical history SURGICAL HISTORY: Denies ALLERGIES: No known drug allergies REVIEW OF SYSTEMS General/Constitutional: Denies fever or chills. Denies weakness, weight change. HEENT: Denies change in vision. Denies ear pain or discharge. Denies sore throat. Cardiovascular: Denies chest pain or shortness of breath. Respiratory: Denies cough, wheezing, or hemoptysis. Gastrointestinal: Denies nausea, vomiting, diarrhea or constipation. Denies rectal bleeding. Genitourinary: Denies dysuria, frequency, or change in urination. Musculoskeletal: Denies joint or muscle swelling or pain. Denies neck or back pain. Skin and breasts: Denies rash or easy bruising. Neurologic: Denies headache, vertigo, loss of consciousness, or loss of sensation. Psychiatric: Denies depression or anxiety. Endocrine: Denies increased thirst. Denies abnormal weight change. Hematologic/Lymphatic: Denies anemia, easy bleeding, or history of blood clots. Allergic/Immunologic: Denies hives or skin allergy. Denies latex allergy. PHYSICAL EXAM General Appearance: Well-appearing, appropriately dressed. No apparent distress , no intoxication. Respiratory/Chest: Lungs CTAB. No shortness of breath, chest tenderness, respiratory distress, accessory muscle use. No crackles, rales, rhonchi, stridor , wheezing, dullness Cardiovascular: RRR. S1, S2. No JVD, murmur, bradycardia, tachycardia. Gastrointestinal/Abdominal: Normal bowel sounds. Abdomen soft, non-distended. No tenderness or rebound tenderness. No organomegaly, pulsatile mass, guarding, hernia, hepatomegaly, splenomegaly. Integumentary: Appropriate color, dry, warm. No cyanosis, erythema, jaundice or rash Neurologic: tool and die designer II-XII intact. Fully oriented, alert. Appropriate mood/affect. Motor strength 5/5. No appreciable EOM palsy, facial droop or sensory deficit. Past History - Past Medical History Allergies/Adverse Reactions: Allergies Allergy/AdvReac Type Severity Reaction Status Date / Time No Known Allergies Allergy Verified 08/18/18 16:20 Home Medications: Ambulatory Orders Pnv No.121/Iron/Folic Acid [ Multivitamin Tablet] 1 each PO DAILY Cephalexin Monohydrate [Keflex -] 500 mg PO BID #20 capsule 09/18/18 95/Iron Fum/Folic/Dha [ + Dha Combo Pack] 1 each PO DAILY #30 combo..pkg 09/18/18 Anemia: No Asthma: No Cancer: No Cardiac Disorders: No CVA: No COPD: No DVT: No Dementia: No Diabetes: No Dialysis: No GI Disorders: No Disorders: No HTN: No Hypercholesterolemia: No Kidney Stones: No Liver Disease: No Psychiatric Problems: No Seizures: No Thyroid Disease: No Lung CA: No - Surgical History Abdominal Surgery: No Appendectomy: No Cardiac Surgery: No Cholecystectomy: No Gastric Stapling: No GI Surgery: No Lung Surgery: No Neurologic Surgery: No - Reproductive History (#): 1 Para: 0 - Immunization History Immunization Up to Date: Yes - Suicide/Smoking/Psychosocial Hx Smoking History: Unknown if ever smoked Hx Alcohol Use: No Drug/Substance Use Hx: No Substance Use Type: None *Physical Exam - Vital Signs Last Vital Signs Temp Pulse Resp BP Pulse Ox 98.9 F 79 20 119/63 100 09/17/18 21:43 09/17/18 21:43 09/17/18 21:43 09/17/18 21:43 09/17/18 21:43 ED Treatment Course - LABORATORY CBC & Chemistry Diagram: 09/17/18 23:05 09/17/18 23:05 Medical Decision Making - Medical Decision Making 09/17/18 23:09 A/P: 23-year-old female with left pelvic pain and positive home test Differential diagnosis includes but is not limited to ectopic , retained products of conception, tubo-ovarian abscess, torsion, ovarian cysts, IUP Labs Urine TVUS Reassess 09/18/18 00:47 Ultrasound as read by imaging portable irrigation operator: Thickened endometrium without IUP. Differential diagnosis includes early normal , miscarriage, ectopic . Recommend follow-up sonography and correlation with hCG levels. Patient's beta hCG is 203. His likely early given the low beta levels and no evidence of IUP. Patient has been instructed to follow-up with her primary drilling field operator or to return to the emergency department for reevaluation in 2 days for repeat beta testing and ultrasound. I will discharge the patient home to follow-up with her drilling field operator for continued evaluation of . 09/18/18 01:29 Urinalysis 2+ leukoesterase and 17 wbc's. This is suggestive of infection I will treat with Keflex 500 mg twice a day for 10 days. *DC/Admit/Observation/Transfer Diagnosis at time of Disposition: UTI (urinary tract infection) Qualifiers: Urinary tract infection type: acute cystitis Hematuria presence: without hematuria Qualified Code(s): N30.00 - Acute cystitis without hematuria Qualifiers: Weeks of gestation: less than 8 weeks Qualified Code(s): Z3A.01 - Less than 8 weeks gestation of - Discharge Dispostion Disposition: HOME Condition at time of disposition: Stable - Prescriptions Prescriptions: Cephalexin Monohydrate [Keflex -] 500 mg PO BID #20 capsule 95/Iron Fum/Folic/Dha [ + Dha Combo Pack] 1 each PO DAILY #30 combo..pkg - Referrals Referrals: [facility] [Provider Group] - Patient Instructions Additional Instructions: Rest, drink lots of fluids: Teas, water, soups Avoid contact with others until fevers and symptoms resolved Lots of handwashing and good hygiene Continue [id number] medications for symptomatic relief Tylenol or Motrin for fever and pain Continue all of antibiotics until completed Followup with private physician in one week for repeat urinalysis/reevaluation Return to emergency department with drilling field operator in 2 days for repeat blood work and ultrasound Return to emergency department for worsened symptoms, fevers, dehydration - Post Discharge Activity
[2018-09-17 23:46] LABS: ALBUMIN 3.6 g/dl (3.4-5.0); BILIRUBIN,TOTAL 0.3 mg/dL (0.2-1); CALCIUM 8.7 mg/dL (8.5-10.1); CREATININE 0.6 mg/dL (0.55-1.3); POTASSIUM 3.6 mmol/L (3.5-5.1); TOT PROT 7.3 g/dl (6.4-8.2)
[2018-09-18 00:57] LABS: EPI CELLS 17.5 /HPF (0-5/HPF); PH,URINE 6.5 (5.0-8.0); URINE APPEARANCE CLEAR; URINE BACTERIA 459.8 /hpf (NEGATIVE); URINE BILIRUBIN NEGATIVE (NEGATIVE); URINE CASTS 9 /lpf (0-8); URINE COLOR YELLOW; URINE GLUCOSE (UA) NEGATIVE (NEGATIVE); URINE KETONE TRACE (NEGATIVE); URINE LEUK ESTERASE 2+ (NEGATIVE); URINE NITRITE NEGATIVE (NEGATIVE); URINE PROTEIN NEGATIVE (NEGATIVE); URINE RBC 1 /hpf (0-4); URINE WBC 17 /hpf (0-5)
== END 2018-09-18 01:37 | disposition home or self-care (01) ==
LOC: JER 21:34
DX: O23.31 Infections of other parts of urinary tract in pregnancy, first trimester (principal); N30.00 Acute cystitis without hematuria; Z3A.01 Less than 8 weeks gestation of pregnancy
CPT/HCPCS: 36415; 76817-TC; 80053; 81003; 84702; 85025; 87086; 99282-25

== ENCOUNTER 2018-09-26 14:23 | Emergency (ER) | payer OTHER ==
[2018-09-26 14:35] VITALS: BP 124/70; PULSE 74; TEMP 98.2; BMI 31.8
--- NOTE | 2018-09-26 15:00 | PDOC ---
History of Present Illness - General Chief Complaint: [facility] [place] Stated Complaint: F/U/ SORE THROAT Time Seen by Provider: 09/26/18 14:51 History Source: Patient Exam Limitations: No Limitations - History of Present Illness Travel History: No Initial Comments: 09/26/18 15:07 Patient was seen here on September 17 within [place] the beta hCG of 203, ultrasound did not reveal an IUP. Was to follow-up and she did with IT SYSTEMS ANALYST CONSULTANT doctor 4 days ago. [facility] blood work was taken but did not know the number. [facility] was instructed to return this morning for follow-up and ultrasound at the clinic but did not make that appointment. Came here instead. Patient denies any nausea vomiting cramping, no vaginal bleeding. Timing/Duration: reports: resolved prior to arrival Abdominal Pain Onset Location: denies: generalized abdomen Past History - Travel Traveled outside of the country in the last 30 days: No Close contact w/someone who was outside of country & ill: No - Past Medical History Allergies/Adverse Reactions: Allergies Allergy/AdvReac Type Severity Reaction Status Date / Time No Known Allergies Allergy Verified 09/18/18 01:34 Home Medications: Ambulatory Orders Pnv No.121/Iron/Folic Acid [ Multivitamin Tablet] 1 each PO DAILY Anemia: No Asthma: No Cancer: No Cardiac Disorders: No CVA: No COPD: No DVT: No Dementia: No Diabetes: No Dialysis: No GI Disorders: No Disorders: No HTN: No Hypercholesterolemia: No Kidney Stones: No Liver Disease: No Psychiatric Problems: No Seizures: No Thyroid Disease: No Lung CA: No - Surgical History Abdominal Surgery: No Appendectomy: No Cardiac Surgery: No Cholecystectomy: No Gastric Stapling: No GI Surgery: No Lung Surgery: No Neurologic Surgery: No - Reproductive History (#): 1 Para: 0 - Immunization History Immunization Up to Date: Yes - Suicide/Smoking/Psychosocial Hx Smoking History: Never smoked Have you smoked in the past 12 months: No Information on smoking cessation initiated: No Hx Alcohol Use: No Drug/Substance Use Hx: No Substance Use Type: None Review of Systems - Review of Systems Able to Perform ROS?: Yes Is the patient limited Liberian proficient: Yes Constitutional: Yes: Symptoms Reported, See HPI. No: Fever, Malaise HEENTM: Yes: See HPI. No: Symptoms Reported Respiratory: Yes: See HPI. No: Symptoms reported, Cough ABD/GI: Yes: See HPI. No: Symptoms Reported, Nausea, Vomiting : Yes: See HPI. No: Symptoms Reported, Burning, Dysuria Neurological: No: Symptoms reported All Other Systems: Reviewed and Negative *Physical Exam - Vital Signs Last Vital Signs Temp Pulse Resp BP Pulse Ox 98.2 F 74 18 124/70 100 09/26/18 14:27 09/26/18 14:27 09/26/18 14:27 09/26/18 14:09/26/18 14:27 - Physical Exam General Appearance: Yes: Nourished, Appropriately Dressed. No: Apparent Distress HEENT: positive: EVA, Normal ENT Inspection, TMs Normal, Pharynx Normal Neck: positive: Supple. negative: Lymphadenopathy (R), Lymphadenopathy (L) Respiratory/Chest: positive: Lungs Clear, Normal Breath Sounds Gastrointestinal/Abdominal: positive: Normal Bowel Sounds, Soft. negative: Tender Musculoskeletal: positive: Normal Inspection Extremity: positive: Normal Capillary Refill, Normal Inspection Integumentary: positive: Dry, Warm, Pale Neurologic: positive: salesperson children's shoes II-XII NML intact, Fully Oriented, Alert, Normal Mood/ Affect, Normal Response, Motor Strength 5/5 Progress Note - Progress Note Progress Note: Beta hCG 8197 indicating a 3-5 week , ultrasound reveals a yolk sac with a pole but no heart rate detected. Patient has a follow-up appointment on Friday with WEB RETAILER and understands will need to have ultrasound repeated when deemed necessary by IT SYSTEMS ANALYST CONSULTANT doctor to identify viability of . *DC/Admit/Observation/Transfer Diagnosis at time of Disposition: Early stage of - Discharge Dispostion Disposition: HOME Condition at time of disposition: Stable Decision to Admit order: No - Referrals Referrals: Lorelei Sosa MD [Primary Care Provider] - - Patient Instructions Printed Discharge Instructions: DI for Abdominal Pain -- Early Additional Instructions: Rest, drink lots of fluids: Teas, water, soups Lots of handwashing and good hygiene Continue [id number] medications for symptomatic relief Follow-up on Friday as planned IT SYSTEMS ANALYST CONSULTANT consultation Return to emergency department for worsened symptoms, fevers, dehydration - Post Discharge Activity Forms/Work/School Notes: Back to Work
== END 2018-09-26 16:19 | disposition home or self-care (01) ==
LOC: JERFT 14:23
DX: O36.80X0 Pregnancy with inconclusive fetal viability, not applicable or unspecified (principal); Z3A.01 Less than 8 weeks gestation of pregnancy
CPT/HCPCS: 36415; 76817-TC; 84702; 99281-25

== ENCOUNTER 2019-05-28 11:55 | Inpatient (IN) | payer OTHER ==
[2019-05-28 12:22] VITALS: BMI 43.4
[2019-05-28] MEDS ORDERED: BUTORPHANOL TARTRATE 1 MG/ML VIAL IVPB ONE (12:28)
[2019-05-28] MEDS ORDERED: PROMETHAZINE HCL 25 MG/1 ML VIAL IVPUSH ONE (12:28)
[2019-05-28] MEDS ORDERED: DEXTROSE 5%-LACTATED RINGERS 1,000 ML IV SCH (12:30)
[2019-05-28] MEDS ORDERED: SODIUM PHOSPHATE/NA BIPHOS 133 ML ENEMA PR ONE (12:31)
[2019-05-28] MEDS ORDERED: DINOPROSTONE 10 MG VAGINAL SUPPOSITORY VG ONE (12:31)
[2019-05-28 12:56] LABS: BASO % 0.3 % (0-2.0); EOS % 0.7 % (0-4.5); HEMATOCRIT 31.5 % (32.4-45.2); HEMOGLOBIN 10.1 GM/dL (10.7-15.3); LYMPH % 15.6 % (8-40); MCH 24.4 pg (25.7-33.7); MCHC 32.2 g/dl (32.0-36.0); MEAN CELL VOLUME 75.7 fl (80-96); MEAN PLT VOLUME 8.7 fl (7.5-11.1); MONO % 9.1 % (3.8-10.2); NEUT % 74.3 % (42.8-82.8); PLATELET COUNT 253 K/MM3 (134-434); RBC 4.16 M/mm3 (3.60-5.2); RDW 18.6 % (11.6-15.6); WHITE BLOOD COUNT 10.2 K/mm3 (4.0-10.0)
--- NOTE | 2019-05-28 13:01 | HP ---
Past Medical History - Primary Care Physician PCP:: Georgia Shankar - Admission Chief Complaint: 23 yrs , 40.1 weeks sent fom [place] dept due to Oligohydramnios, pt is admitted for induction of labor. 05/28/2019 sono report : sliup, cephalic presentation, efw 3593gm, , mini 3.5, bpp8/8 , UA ratio 1.9 History of Present Illness: pt had pnc at [facility] she transferred care to [address] [place] [address] in last 1 month panel :01/07/19 : A Pos, Hbsag neg, Rubella immune, Quantiferon pos, hiv neg rpr nr, pap neg 1 hr gtt 68 05/06/19 : GBS pos, gc/ct neg, hiv neg h/h 10.5/33.3, plt 280 , BV neg, estuardo pos sono fro [facility] at 14 weeks noted h/o uti during ppregn few times & treatd h/o rx for yeast infection History Source: Patient Limitations to Obtaining History: No Limitations - Past Medical History 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 No: Asthma Gastrointestinal: No: GERD Hepatobiliary: No: Hepatitis B Renal/: Yes: UTI (treated duringpregn) ...: 2 ...Para: 0 ...Term: 0 ...: 1 ...Spon : 0 ...Induced : 0 ...Multiple Gestation: 0 ... Weeks Gestation by Dates: 40.1 ...EDC by Sono: 05/27/19 (40.1 weeks by sono ) Heme/Onc: Yes: Anemia Infectious Disease: Yes: Other (declines) Psych: No: Addictions, Anxiety, Bipolar, Depression, Panic, Psychosis, Schizophrenia, Other Endocrine: No: [place]'s Disease, [place]'s Disease, Diabetes Insipidus, Diabetes Mellitus, Hyperparathyroidism, Hyperthyroidism, Hypothyroidism, Osteopenia, SIADH, Other - Past Surgical History Past Surgical History: Yes: None Hx Myomectomy: No Hx Transabdominal Cerclage: No - Smoking History Smoking history: Never smoked Have you smoked in the past 12 months: No - Alcohol/Substance Use Hx Alcohol Use: No History of Substance Use: reports: None Home Medications - Allergies Allergies/Adverse Reactions: Allergies Allergy/AdvReac Type Severity Reaction Status Date / Time No Known Allergies Allergy Verified 05/19/19 07:59 - Home Medications Home Medications: Ambulatory Orders Vitamins (Sjr) - 1 tab PO DAILY 05/19/19 Physical Exam - Maternity Vital Signs: Vital Signs Temperature 98.7 F 05/28/19 12:18 Pulse Rate 74 05/28/19 12:18 Respiratory Rate 18 05/28/19 12:18 Blood Pressure 124/66 05/28/19 12:18 O2 Sat by Pulse Oximetry (%) Selected Entries 05/28/19 12:18 Weight 245 lb Constitutional: Yes: Well Nourished, Obese Eyes: Yes: WNL HENT: Yes: WNL, Normocephalic Neck: Yes: WNL, Rigid Lungs: Clear to auscultation Breast(s): Yes: WNL - Abdominal Exam/OB Fundal Height: 40 Number of Fetuses: Single Presentation: Vertex Contractions: No Monitor Mode: External Heart Rate (range): 130-140 Heart Rate Location: [facility] Category: I Accelerations: Uniform Decelerations: None - Vaginal Exam/OB Vaginal Bleediing: No Dilatation (cm): close Effacement (%): unefface Amniotic Membrane Status: Intact Presentation: Vertex/Position Station: -3 - Physical Exam Musculoskeletal: Yes: WNL Extremities: Yes: WNL. No: Calf Tenderness Edema: LLE: 1+, RLE: 1+ Integumentary: Yes: Tattoos Deep Tendon Reflex Grade: Normal +2 ...Motor Strength: WNL Psychiatric: Yes: WNL, Alert, Oriented - Labs Lab Results: Laboratory Tests 05/28/19 05/28/19 05/28/19 12:45 12:45 12:45 WBC 10.2 H Hgb 10.1 L Hct 31.5 L Plt Count 253 PT with INR 11.60 INR 0.98 PTT (Actin FS) 30.4 Sodium 138 Potassium 4.4 Chloride 109 H Carbon Dioxide 25 Anion Gap 5 L BUN 8.0 Creatinine 0.6 Random Glucose 74 Calcium 8.7 RPR Titer Blood Type Antibody Screen 05/28/19 05/28/19 12:45 12:45 WBC Hgb Hct Plt Count PT with INR INR PTT (Actin FS) Sodium Potassium Chloride Carbon Dioxide Anion Gap BUN Creatinine Random Glucose Calcium RPR Titer Nonreactive Blood Type A POSITIVE Antibody Screen Negative Problem List - Problems (1) Post-term Code(s): O48.0 - POST-TERM (2) Oligohydramnios Code(s): O41.00X0 - OLIGOHYDRAMNIOS, UNSP TRIMESTER, NOT APPLICABLE OR UNSP Qualifiers: Trimester: third trimester (3) Encounter for elective induction of labor Code(s): Z34.90 - ENCNTR FOR SUPRVSN OF NORMAL , UNSP, UNSP TRIMESTER Assessment/Plan 23 yrs , 40.1 weeks , oligohydramnios( mini 3.5) , is admitted for induction of labor GBS pos Plan cervidil inserted trial of vaginal delivery gbs prophylaxis with Iv Ampicillin when uc are regular
[2019-05-28 13:16] LABS: INR 0.98 (0.83-1.09); PROTHROMBIN TIME (PATIENT) 11.6 SEC (9.7-13.0)
[2019-05-28 13:19] LABS: ACTIVATED PTT 30.4 SECONDS (25.2-36.5)
[2019-05-28 13:28] LABS: CALCIUM 8.7 mg/dL (8.5-10.1); CREATININE 0.6 mg/dL (0.55-1.3); POTASSIUM 4.4 mmol/L (3.5-5.1)
[2019-05-28] MEDS ORDERED: AMPICILLIN SODIUM 2 GM VIAL IVPB ONE (20:15)
[2019-05-28] MEDS ORDERED: AMPICILLIN SODIUM 2 GM VIAL ONE (20:19)
[2019-05-29] MEDS: AMPICILLIN SODIUM 1 GM VIAL IVPB SCH ×4 (00:30→12:03)
[2019-05-29] MEDS ORDERED: AMPICILLIN SODIUM 1 GM VIAL ONE ×4 (00:37→11:48)
--- NOTE | 2019-05-29 00:53 | PN ---
Progress Note (short form) - Note Progress Note: 12.45 AM cervidil removed cx FT/50 %/mI/Vx -3 /soft pt took enema & shower prior to removal of cervidil FHR 130-140 bpm , cat-1 UC irregular 1-2 min Pt receiving IV Ampicillin since 8.30 PM 05/28/19 Plan : will start Pitocin induction at 1.30 AM Selected Entries 05/28/19 05/28/19 22:00 23:00 Temperature 98.1 F Pulse Rate 90 87 Blood Pressure 112/59 L Problem List - Problems (1) Post-term Code(s): O48.0 - POST-TERM (2) Oligohydramnios Code(s): O41.00X0 - OLIGOHYDRAMNIOS, UNSP TRIMESTER, NOT APPLICABLE OR UNSP Qualifiers: Trimester: third trimester (3) Encounter for elective induction of labor Code(s): Z34.90 - ENCNTR FOR SUPRVSN OF NORMAL , UNSP, UNSP TRIMESTER
[2019-05-29] MEDS ORDERED: OXYTOCIN 30 UNITS in 0.9% NS 30 UNIT/500 ML INFUS.BAG IVPB SCH (01:30)
[2019-05-29] MEDS ORDERED: OXYTOCIN 30 UNITS in 0.9% NS 30 UNIT/500 ML INFUS.BAG IVPB ONE (01:33)
[2019-05-29] MEDS ORDERED: BUTORPHANOL TARTRATE 1 MG/ML VIAL ONE ×2 (02:47)
[2019-05-29] MEDS ORDERED: PROMETHAZINE HCL 25 MG/1 ML VIAL ONE (02:48)
[2019-05-29] MEDS ORDERED: FENTANYL/BUPIVACAINE/NS/PF - PCEA - 50 ML DISP.SYRIN EP ONE ×2 (06:46→11:44)
[2019-05-29] MEDS ORDERED: BUPIVACAINE HCL/PF 0.25% (2.5MG/ML) 10 ML VIAL ONE (06:50)
[2019-05-29] MEDS ORDERED: LIDO 2%/EPI 1:200000 PRESRVFRE (20 ML SDVIAL) ONE ×2 (06:50→13:17)
[2019-05-29] MEDS: ELECTROLYTE-148 SOLN 1,000 ML IV SCH ×2 (07:00→09:52)
[2019-05-29] MEDS ORDERED: NALOXONE HCL 0.4 MG/ML VIAL IVPUSH PRN (07:12)
[2019-05-29] MEDS ORDERED: FENTANYL/BUPIVACAINE/NS/PF - PCEA - 50 ML DISP.SYRIN EP SCH (07:15)
--- NOTE | 2019-05-29 07:45 | PN ---
Progress Note (short form) - Note Progress Note: 6.30 AM 3cm/60 %/vx-3/-2/IA fhr 130 , uc irregular, dysfunctional , loss of contact , pt sitting 1.30 AM Pitocin Induction 3.00AM stadol 2mg+ phenrgan 25 mg iv stat 7.10AM epidural labor analgesia Plan ct trial of labor Selected Entries 05/29/19 06:00 Temperature 98.3 F Pulse Rate 85 Blood Pressure 129/74 Problem List - Problems (1) Post-term Code(s): O48.0 - POST-TERM (2) Oligohydramnios Code(s): O41.00X0 - OLIGOHYDRAMNIOS, UNSP TRIMESTER, NOT APPLICABLE OR UNSP Qualifiers: Trimester: third trimester (3) Encounter for elective induction of labor Code(s): Z34.90 - ENCNTR FOR SUPRVSN OF NORMAL , UNSP, UNSP TRIMESTER
--- NOTE | 2019-05-29 11:29 | PN ---
Progress Note, Labor Vaginal Exam #1 Labor Exam Date: 05/29/19 Labor Exam Time: 11:25 Heart Rate (range): 130-150 Dilatation: 4-5 Effacement (%): 70 Amniotic Membrane Status: Intact Presentation: Vertex/Position Station: -2 Remarks: fhr cat-1 uc 1-3 min epidural in progress Selected Entries 05/29/19 05/29/19 10:00 10:15 Temperature 98.5 F Pulse Rate 93 H Blood Pressure 124/74 ct iv ampicillin prophylaxis ct trial of labor Vaginal Exam #2 Labor Exam Date: 05/29/19 Labor Exam Time: 01:15 Heart Rate (range): 70-135 Dilatation: 5 Effacement (%): 80 Amniotic Membrane Status: Ruptured Presentation: Vertex/Position (large caput) Station: -2 Remarks: recurrent deep variable decelrations ,cat-2 uc are 2-3 min Impm : non reassuring FHR , oligohydramnios , failed induction of labor Plan discontinue trial of labor stop pitocin delivery by primary c/section ( LFtC/section ) Selected Entries 05/29/19 05/29/19 05/29/19 12:00 12:15 12:30 Temperature 98.7 F Pulse Rate 86 85 Blood Pressure 111/60 110/57 L
[2019-05-29] MEDS ORDERED: ceFAZolin SODIUM 1 GM VIAL ONE (13:20)
[2019-05-29] MEDS ORDERED: CITRIC ACID/SODIUM CITRATE 30 ML UNIT-DOSE CUP PO ONE (13:21)
[2019-05-29] MEDS ORDERED: morphine SULFATE/PF 0.5 MG/ML (2cc Syringe - QUVA) ONE ×3 (13:46)
[2019-05-29] MEDS ORDERED: OXYTOCIN 10 UNITS/ML VIAL ONE ×2 (13:49→13:53)
[2019-05-29] MEDS ORDERED: METHYLERGONOVINE MALEATE 0.2 MG/1 ML AMP IM PRN (14:36)
[2019-05-29] MEDS ORDERED: ONDANSETRON 4 MG/2 ML VIAL IVPUSH PRN (14:54)
[2019-05-29] MEDS ORDERED: morphine SULFATE/PF 0.5 MG/ML (2cc Syringe - QUVA) EP ONE (14:54)
--- NOTE | 2019-05-29 14:54 | PN ---
Delivery - Delivery Section: Primary, Low Flap Transverse (40.2 weeks, Non Reassuring FHR, Oligohydramnios, Failed Induction of labor) Type of Anesthesia: Epidural Episiotomy/Laceration: None EBL (cc): 600 (khalil intraop output 100 ml tony color ) Delivery, Single - Stages of Labor Date 1st Stage Initiatied: 05/29/19 Time 1st Stage Initiated: 02:00 Date of Delivery: 05/29/19 Time of Delivery: 13:49 Time Placenta Delivered: 13:50 Placenta: Yes: Manual Removal, Uterine Exploration - Condition of Infant [id number] Software Engineer/Ab Initio Etl Developer Present: Yes Name: Ky Pérez Infant Gender: Male Weight: 8 lb 6 oz Position: Right (cord around neckx1 tight), OT Total Hours ROM (Hrs/Mins): 1hr 50min - 1 Minute Total Score: 9 5 Minutes Total Score: 9 - [place] Feeding Plan Initial Plan: Exclusive throughout hospitalization Remarks - Remarks Remarks: 23 yrs , 401 weeks admitted for induction of labor due to oligohydramnios ( mini 3.5) PNC at [address] [place] [address], transferred from [facility] Cervidil insertion on 05/28/19 GBS Pos rx Iv Ampicillin prophylaxis given Intraop course uneventful
--- NOTE | 2019-05-29 15:10 | OP ---
Operative Note - Note: Operative Date: 05/29/19 Pre-Operative Diagnosis: 40.2 weeks, Non Reassuring FHR,Oligohydramnios, Failed Induction of labor Operation: Primary LFTC/Section Findings: 05/29/19 , 1.49 PM, baby Boy, Vx, ROT, 9/9 , wt 8'6". 19.5", cord around neckx1 tight , low AFluid volume Both tubes & ovaries normal Post-Operative Diagnosis: Other (cord around neckx1) Surgeon: Georgia Shankar Wheel Adjuster: Ari Givens Anesthesiologist/ROOFING PLANT SUPERVISOR: Raul Salgado Anesthesia: Epidural Specimens Removed: cord segment for cord gas. cord blood. placenta Estimated Blood Loss (mls): 600 Drains, Volume Out (mls): 100 (khalil, tony color urine ) Fluid Volume Replaced (mls): 1,200 (2 gm Iv Ancef given ) Operative Report Dictated: Yes
[2019-05-29] MEDS: OXYTOCIN 20 UNITS in 0.9% NS 20 UNIT/1,000 ML INFUS.BAG IV SCH (15:44)
--- NOTE | 2019-05-29 16:32 | OP ---
DATE OF OPERATION: 05/29/2019 PREOPERATIVE DIAGNOSIS: 40.2 weeks, nonreassuring heart, oligohydramnios, failed induction of labor. OPERATION DONE: Primary low-flap transverse section. SURGEON: Georgia Shankar MD CINDER PIT CRANE OPERATOR SURGEON: TANGELA Watkins ANESTHESIOLOGIST: Raul Salgado MD ANESTHESIA: Epidural. SPORTS TEAM MARKETING INTERN: Dr. Beto Mcpherson FINDINGS: This is a 23-year-old, 2, para 0-0-1-0, who was admitted for induction of labor on May 28, 2019, due to oligohydramnios, CASSY of 3.2. Cervidil was inserted. After Cervidil 12 hours, a Pitocin induction was started, and she received Stadol, followed by the epidural, labor analgesia, she had dilated up to 5 cm before making the decision. She was getting recurrent deep decelerations, going up to 70 beats per minute. There was no change in FHR pattern even by changing the position; so, it was decided to deliver the patient by . DESCRIPTION OF PROCEDURE: Patient is obese. Her BMI is 43.4. Her epidural was reinforced. She had SCD stockings in place. Abdomen was shaved, prepped. Galo catheter also was in place. Patient was transferred to the operating room. Abdomen was painted and draped in usual manner. Pfannenstiel incision was made through the skin and subcutaneous tissue. Anterior rectus sheath was incised transversely. Bleeding points were clamped and cauterized, and then, the rectus muscle was from the rectus sheath. Parietal peritoneum was opened vertically. Low-flap bladder peritoneum was identified, and it was incised transversely. Lower uterine segment was incised transversely. Amniotic fluid was minimal, and it was clear. Baby was delivered from ROT position at 1:49 p.m. There was tight loop of the cord around the neck, which was clamped, cut, and it was entangled. Then, immediate oral and nasal suction was done. Baby was handed over to the cordage sales representative present in the room. Cord blood was collected, and before that, cord segment was sent for the cord blood gas. The placenta was removed completely with the membranes. Uterine cavity was cleaned, and the closure of the uterine incision was done in 2 layers. First layer was a continuous locking with a Biosyn 0 suture. Second layer was a continuous, intermittently locking with a Biosyn 0 suture, and then, the bladder peritoneum also was closed with a Biosyn 0 suture. Hemostasis verified. Both tubes and ovaries were normal. Irrigation was done. Sponge, instrument, needle count was correct, and the closure of the abdomen was done. Parietal peritoneum was closed with a Vicryl 0 suture. Muscles were approximated together with interrupted Vicryl 0 sutures. Hemostasis was checked underneath the rectus sheath flaps, and then, anterior rectus sheath was closed with a Vicryl 0 suture. Continuous sutures were taken. Subcutaneous tissue hemostasis verified. Interrupted sutures were taken with a Vicryl 0 suture in subcutaneous tissue, and then, skin was approximated with ernesto. Pressure dressing was given. Blood clots were removed from the vagina , and patient was transferred to the recovery room in stable condition. Estimated blood loss was 600 mL. Intraoperative urine output was 100 mL, and it was tony color. She received 2 g of IV Ancef prior to the incision. Levi [id number] MTDPari
[2019-05-29] MEDS: IBUPROFEN 800 MG/8 ML IJ IVPB PRN (16:39)
[2019-05-29] MEDS: CEFAZOLIN 1 GM in DEXTROSE 5%-WATER - 50 ML IVPB SCH (18:27)
[2019-05-30] MEDS: CEFAZOLIN 1 GM in DEXTROSE 5%-WATER - 50 ML IVPB SCH (01:30)
[2019-05-30] MEDS: CEFAZOLIN 1 GM/D5W 1 GM/50 ML BAG IVPB SCH ×2 (02:00→09:57)
[2019-05-30] MEDS ORDERED: oxyCODONE HCL 5 MG TABLET PO PRN (06:00)
--- NOTE | 2019-05-30 08:20 | PN ---
Progress Note (short form) - Note Progress Note: Anesthesia/pain Pt seen and examined S:Alert and oriented, comfortable O: Vital Signs Temperature 98.8 F 05/30/19 06:00 Pulse Rate 111 H 05/30/19 06:00 Respiratory Rate 18 05/30/19 06:00 Blood Pressure 118/86 05/30/19 06:00 O2 Sat by Pulse Oximetry (%) 96 05/29/19 21:00 CBC, BMP 05/28/19 12:45 05/28/19 12:45 A/P: Current Active Problems Encounter for elective induction of labor (Acute) Oligohydramnios (Acute) Post-term (Acute) s/p c section Doing well post op Continue current care Ryan Gentile MD
[2019-05-30 08:32] LABS: BASO % 0.3 % (0-2.0); EOS % 0.2 % (0-4.5); HEMATOCRIT 30.1 % (32.4-45.2); HEMOGLOBIN 9.5 GM/dL (10.7-15.3); LYMPH % 10.9 % (8-40); MCH 23.8 pg (25.7-33.7); MCHC 31.5 g/dl (32.0-36.0); MEAN CELL VOLUME 75.7 fl (80-96); MEAN PLT VOLUME 8.2 fl (7.5-11.1); MONO % 7.9 % (3.8-10.2); NEUT % 80.7 % (42.8-82.8); PLATELET COUNT 210 K/MM3 (134-434); RBC 3.98 M/mm3 (3.60-5.2); WHITE BLOOD COUNT 12.3 K/mm3 (4.0-10.0)
[2019-05-30] MEDS: IBUPROFEN 800 MG/8 ML IJ IVPB PRN (08:39)
[2019-05-30] MEDS: SIMETHICONE 80 MG TAB.CHEW (FP) PO PRN ×2 (08:40→17:31)
--- NOTE | 2019-05-30 09:15 | PN ---
Post Progress Note - Subjective Subjective: c/o pain scale 6/10 did not void after khalil is taken out Post Day: 1 Type of Delivery: Primary C/S Vital Signs: Vital Signs Temperature 98.8 F 05/30/19 06:00 Pulse Rate 111 H 05/30/19 06:00 Respiratory Rate 18 05/30/19 06:00 Blood Pressure 118/86 05/30/19 06:00 O2 Sat by Pulse Oximetry (%) 96 05/29/19 21:00 Breast Exam: Yes: Soft, Other (plans to BF ). No: Engorged Uterus: Yes: Fundus Firm, Fundus below umbilicus Incision: Yes: Dressing dry and intact. No: Oozing Abdomen/GI: Yes: Abdomen soft (bs active ), Abdominal Distention (obese abdomen ), Tender, Passing flatus, Tolerating PO (clear fluids ) Lochia, amount: Moderate Extremities: Yes: Calves non-tender Perineum: Yes: Intact Activity: Other (not oob yet ) - Labs Labs: CBC WBC 12.3 K/mm3 (4.0-10.0) H 05/30/19 08:16 RBC 3.98 M/mm3 (3.60-5.2) 05/30/19 08:16 Hgb 9.5 GM/dL (10.7-15.3) L 05/30/19 08:16 Hct 30.1 % (32.4-45.2) L 05/30/19 08:16 MCV 75.7 fl (80-96) L 05/30/19 08:16 MCH 23.8 pg (25.7-33.7) L 05/30/19 08:16 MCHC 31.5 g/dl (32.0-36.0) L 05/30/19 08:16 RDW 19.0 % (11.6-15.6) H 05/30/19 08:16 Plt Count 210 K/MM3 (134-434) 05/30/19 08:16 MPV 8.2 fl (7.5-11.1) 05/30/19 08:16 Absolute Neuts (auto) 9.9 K/mm3 (1.5-8.0) H 05/30/19 08:16 Neutrophils % 80.7 % (42.8-82.8) 05/30/19 08:16 Lymphocytes % 10.9 % (8-40) D 05/30/19 08:16 Monocytes % 7.9 % (3.8-10.2) 05/30/19 08:16 Eosinophils % 0.2 % (0-4.5) 05/30/19 08:16 Basophils % 0.3 % (0-2.0) 05/30/19 08:16 Nucleated RBC % 0 % (0-0) 05/30/19 08:16 Other Findings, Remarks: i/o 1500/900 ml rs cta Problem List - Problems (1) Post-term Code(s): O48.0 - POST-TERM (2) Oligohydramnios Code(s): O41.00X0 - OLIGOHYDRAMNIOS, UNSP TRIMESTER, NOT APPLICABLE OR UNSP Qualifiers: Trimester: third trimester (3) Encounter for elective induction of labor Code(s): Z34.90 - ENCNTR FOR SUPRVSN OF NORMAL , UNSP, UNSP TRIMESTER (4) delivery delivered Code(s): O82 - ENCOUNTER FOR DELIVERY WITHOUT INDICATION (5) Status post section routine follow-up Code(s): Z39.2 - ENCOUNTER FOR ROUTINE FOLLOW-UP; Z98.891 - HISTORY OF UTERINE SCAR FROM PREVIOUS SURGERY Assessment/Plan stable encourage ambulation , deep breathing , po fluids
[2019-05-30] MEDS: ENOXAPARIN NA (PORCINE) 40 MG/0.4 ML DISP.SYRIN SQ SCH (09:58)
[2019-05-30] MEDS ORDERED: BISACODYL 10 MG SUPP.RECT RC PRN (14:36)
[2019-05-30] MEDS: FERROUS SO4 325 MG TABLET (FP) PO SCH (17:31)
[2019-05-30] MEDS: IBUPROFEN 600 MG TABLET (FP) PO PRN (17:31)
[2019-05-30] MEDS: SENNOSIDES/DOCUSATE COMBO (SENNA PLUS) TABLET (UD) PO PRN (21:15)
[2019-05-31] MEDS: IBUPROFEN 600 MG TABLET (FP) PO PRN ×3 (04:24→20:01)
[2019-05-31] MEDS: SIMETHICONE 80 MG TAB.CHEW (FP) PO PRN ×2 (04:24→10:57)
[2019-05-31] MEDS: ACETAMINOPHEN 325 MG TABLET (FP) PO PRN ×3 (04:25→20:00)
[2019-05-31] MEDS: OXYTOCIN 20 UNITS in 0.9% NS 20 UNIT/1,000 ML INFUS.BAG IV SCH (04:27)
--- NOTE | 2019-05-31 10:56 | PN ---
Post Progress Note - Subjective Subjective: c/o pain scale 5/10 voiding without difficulty Post Day: 2 Type of Delivery: Primary C/S Vital Signs: Vital Signs Temperature 97.9 F 05/30/19 22:00 Pulse Rate 102 H 05/30/19 22:00 Respiratory Rate 18 05/30/19 22:00 Blood Pressure 118/64 05/30/19 22:00 O2 Sat by Pulse Oximetry (%) 96 05/29/19 21:00 Breast Exam: Yes: Soft, Other (BF ). No: Engorged Uterus: Yes: Fundus Firm, Fundus below umbilicus, Non-tender Incision: Yes: [place] intact. No: Redness, Oozing Abdomen/GI: Yes: Abdomen soft (bs active ), Abdominal Distention (obese abdomen ), Passing flatus (bmdone ), Tolerating PO (diet ). No: Tender Lochia: Yes: Rubra Lochia, amount: Moderate Extremities: Yes: Calves non-tender, Edema Perineum: Yes: Intact Activity: Ambulating - Labs Labs: CBC WBC 12.3 K/mm3 (4.0-10.0) H 05/30/19 08:16 RBC 3.98 M/mm3 (3.60-5.2) 05/30/19 08:16 Hgb 9.5 GM/dL (10.7-15.3) L 05/30/19 08:16 Hct 30.1 % (32.4-45.2) L 05/30/19 08:16 MCV 75.7 fl (80-96) L 05/30/19 08:16 MCH 23.8 pg (25.7-33.7) L 05/30/19 08:16 MCHC 31.5 g/dl (32.0-36.0) L 05/30/19 08:16 RDW 19.0 % (11.6-15.6) H 05/30/19 08:16 Plt Count 210 K/MM3 (134-434) 05/30/19 08:16 MPV 8.2 fl (7.5-11.1) 05/30/19 08:16 Absolute Neuts (auto) 9.9 K/mm3 (1.5-8.0) H 05/30/19 08:16 Neutrophils % 80.7 % (42.8-82.8) 05/30/19 08:16 Lymphocytes % 10.9 % (8-40) D 05/30/19 08:16 Monocytes % 7.9 % (3.8-10.2) 05/30/19 08:16 Eosinophils % 0.2 % (0-4.5) 05/30/19 08:16 Basophils % 0.3 % (0-2.0) 05/30/19 08:16 Nucleated RBC % 0 % (0-0) 05/30/19 08:16 Problem List - Problems (1) Post-term Code(s): O48.0 - POST-TERM (2) Oligohydramnios Code(s): O41.00X0 - OLIGOHYDRAMNIOS, UNSP TRIMESTER, NOT APPLICABLE OR UNSP Qualifiers: Trimester: third trimester (3) Encounter for elective induction of labor Code(s): Z34.90 - ENCNTR FOR SUPRVSN OF NORMAL , UNSP, UNSP TRIMESTER (4) delivery delivered Code(s): O82 - ENCOUNTER FOR DELIVERY WITHOUT INDICATION (5) Status post section routine follow-up Code(s): Z39.2 - ENCOUNTER FOR ROUTINE FOLLOW-UP; Z98.891 - HISTORY OF UTERINE SCAR FROM PREVIOUS SURGERY Assessment/Plan stable Plan ct po care
[2019-05-31] MEDS: PRENATAL VITAMINS W/ FOLIC ACID TABLET (FP) PO SCH (10:57)
[2019-05-31] MEDS: ENOXAPARIN NA (PORCINE) 40 MG/0.4 ML DISP.SYRIN SQ SCH (10:58)
[2019-05-31] MEDS: FERROUS SO4 325 MG TABLET (FP) PO SCH ×2 (10:58→19:24)
[2019-05-31] MEDS: SENNOSIDES/DOCUSATE COMBO (SENNA PLUS) TABLET (UD) PO PRN (20:00)
[2019-06-01] MEDS: FERROUS SO4 325 MG TABLET (FP) PO SCH (07:46)
[2019-06-01] MEDS: IBUPROFEN 600 MG TABLET (FP) PO PRN (07:46)
[2019-06-01] MEDS: SIMETHICONE 80 MG TAB.CHEW (FP) PO PRN (07:47)
[2019-06-01] MEDS: ACETAMINOPHEN 325 MG TABLET (FP) PO PRN (07:47)
--- NOTE | 2019-06-01 07:59 | DS ---
Physical Examination Vital Signs: Vital Signs Temperature 97.9 F 05/31/19 21:30 Pulse Rate 102 H 05/31/19 21:30 Respiratory Rate 20 05/31/19 21:30 Blood Pressure 121/81 05/31/19 21:30 O2 Sat by Pulse Oximetry (%) 96 05/29/19 21:00 Findings/Remarks: Ambulating, lochia decreased, passing flatus, tolerating PO, voiding. PP/psot- op precautions discussed. Constitutional: Yes: Well Nourished, No Distress HENT: Yes: Atraumatic Neck: Yes: Supple Cardiovascular: Yes: Regular Rate and Rhythm Respiratory: Yes: Regular Gastrointestinal: Yes: Soft ...Rectal Exam: Yes: Deferred Renal/: Yes: Other (deferred) Breast(s): Yes: Other (deferred) Musculoskeletal: Yes: WNL Extremities: Yes: WNL Edema: Yes Edema: LLE: Trace, RLE: Trace Integumentary: Yes: WNL Wound/Incision: Yes: Clean/Dry, Well Approximated, [place] Intact Neurological: Yes: Alert, Oriented ...Motor Strength: WNL Psychiatric: Yes: Alert, Oriented Labs: CBC, BMP 05/30/19 08:16 05/28/19 12:45 Discharge Summary Problems reviewed: Yes Reason For Visit: INDUCTION OF LABOR Current Active Problems delivery delivered (Acute) Encounter for elective induction of labor (Acute) Oligohydramnios (Acute) Post-term (Acute) Status post section routine follow-up (Acute) Procedures: Principal: PLTCS after failed induction of labor Hospital Course: Uncomplicated /post-op recovery. Discharge instructions discussed at bedside prior to discharge Plan of Treatment: Follow up within a week at health center. CAll doctor with any questions or concerns Condition: Stable - Instructions Diet, Activity, Other Instructions: Post Instructions DIET: Continue good diet high in protein, calcium, and iron rich foods. Drink at least eight (8) glasses of water daily in addition to other fluids. ct Regular diet MEDICATIONS: Continue vitamins and iron as previously directed. Motrin and Tylenol may be taken for minor discomfort. ACTIVITY: Mild to moderate exercise may be started in two (2) weeks. Take frequent rest periods. Resume normal activity after six (6) week check up. WOUND CARE OF OPERATIVE SITE: Continue use of perineal bottle until vaginal discharge stops. Keep area clean. Shower daily. Keep abdominal wound dry. Report any drainage or redness to physician. Tub baths, tampons and douches are not permitted for [address] Breast feeding & or Bottle feeding BREAST CARE: (For those that are not ): If engorgement occurs: Wear tight fitting bra. Take Tylenol or Motrin for pain. Apply cold packs (ice in bags to each breast ) FAMILY PLANNING: There are many control alternatives to pursue and they should be discussed at your first office visit. You may resume sexual activity after your six (6) week check up. (Remember, breast feeding is not a contraceptive) NEXT PHYSICIAN APPOINTMENT: Be certain to call for a one (1) week appointment, unless otherwise directed. RTC Friday for f/u wound check Call Clinic or got to Emergency Dept if you have any of the following: Heavy vaginal bleeding Painful urination Leg pain Unusual odor noted to vaginal bleeding High fever Red streaking noted on breast Referrals: Georgia Shankar MD [Staff Physician] - Alessio Singh MD [Staff Physician] - Disposition: HOME - Home Medications Comprehensive Discharge Medication List: Ambulatory Orders Vitamins (Sjr) - 1 tab PO DAILY 05/19/19 Acetaminophen [Tylenol .Regular Strength -] 500 mg PO Q4H PRN #30 tablet Ferrous Sulfate [Feosol] 325 mg PO BIDWM #60 tab 05/30/19 Ibuprofen [Motrin -] 600 mg PO Q4H PRN #30 tablet 05/30/19 Vitamins (Sjr) - 1 tab PO DAILY #30 tablet 05/30/19 Oxycodone HCl 5 mg PO Q6H PRN 3 Days #12 tablet MDD 5 06/01/19
[2019-06-01] MEDS: ENOXAPARIN NA (PORCINE) 40 MG/0.4 ML DISP.SYRIN SQ SCH (09:29)
[2019-06-01] MEDS: PRENATAL VITAMINS W/ FOLIC ACID TABLET (FP) PO SCH (09:29)
[2019-06-01 09:30] VITALS: BP 110/58; PULSE 84; TEMP 98.1
[2019-06-01 11:48] LABS: BASO % 0.3 % (0-2.0); EOS % 2.1 % (0-4.5); HEMATOCRIT 28.5 % (32.4-45.2); HEMOGLOBIN 8.9 GM/dL (10.7-15.3); LYMPH % 16.6 % (8-40); MCH 23.8 pg (25.7-33.7); MCHC 31.3 g/dl (32.0-36.0); MEAN CELL VOLUME 76.2 fl (80-96); MEAN PLT VOLUME 8.3 fl (7.5-11.1); PLATELET COUNT 263 K/MM3 (134-434); RBC 3.75 M/mm3 (3.60-5.2); RDW 19.5 % (11.6-15.6); WHITE BLOOD COUNT 9.3 K/mm3 (4.0-10.0)
--- NOTE | 2019-06-02 14:25 | PATH ---
Surgical Pathology Report Patient Name: BRENDAN CORDOBA Med. Rec. #: [id number] /Age/Gender: 1995 (Age: 23) / F Account: [id number] Location: 3 JEL[facility] OBS/MACHINE STITCHER Taken: 05/29/2019 Received: 05/31/2019 Reported: 06/02/2019 Physicians: Georgia Shankar M.D. Specimen(s) Received PLACENTA Clinical History , oligohydramnios Final Diagnosis PLACENTA, SECTION: 515 G THIRD TRIMESTER PLACENTA WITH TRIVASCULAR UMBILICAL CORD AND UNREMARKABLE PLACENTAL MEMBRANES. Electronically Signed Lorelei Castillo M.D. Gross Description The specimen is received fresh labeled placenta and is a 515 gram, 20.0 x 17.5 x 3.0 cm. placenta with attached membranes and umbilical cord. The attached membranes are hobbs, translucent with focal opacities and insert marginally. The umbilical cord measures 18 cm. in length and averages 1.2 cm. in diameter. The cord inserts eccentrically, 0.5 cm. to the nearest margin. No true knots or strictures are identified. Cut surface of the umbilical cord reveals 3 vessels. The surface is lai-blue with minimal fibrin deposition and appropriate caliber vessels. The maternal surface is red-brown with focal defects. Sectioning reveals red-brown, spongy parenchyma. No lesions are identified. Business Relations Manager sections are submitted in three cassettes as follows: 1- membrane rolls and umbilical cord; 2-3- full thickness sections of placenta. /06/01/2019 saudi/06/01/2019
== END 2019-06-01 14:05 | disposition home or self-care (01) | DRG 540 ==
LOC: JLDR 11:55 → J3W 05-29 16:00
PROVIDERS: ADMIT Obstetrics & Gynecology; ATTEND Obstetrics & Gynecology
PROC: 3E0P7VZ Introduction of Hormone into Female Reproductive, Via Natural or Artificial Opening (ICD-10-PCS; 2019-05-28)
PROC: 10D00Z1 Extraction of Products of Conception, Low, Open Approach (ICD-10-PCS; principal; 2019-05-29)
DX: O48.0 Post-term pregnancy (principal); O76 Abnormality in fetal heart rate and rhythm complicating labor and delivery; O41.03X0 Oligohydramnios, third trimester, not applicable or unspecified; O61.8 Other failed induction of labor; Z3A.40 40 weeks gestation of pregnancy; Z37.0 Single live birth
CPT/HCPCS: 36415; 36600; 80048; 82803; 85025; 85610; 85730; 86593; 86850; 86900; 86901; 88307-TC

== ENCOUNTER 2020-01-09 10:33 | Emergency (ER) | payer OTHER ==
[2020-01-09 10:38] VITALS: BP 115/76; PULSE 69; TEMP 98.1; BMI 35.4
[2020-01-09 11:55] LABS: PH,URINE 5.5 (5.0-8.0); URINE APPEARANCE CLEAR; URINE BILIRUBIN NEGATIVE (NEGATIVE); URINE COLOR YELLOW; URINE GLUCOSE (UA) NEGATIVE (NEGATIVE); URINE KETONE TRACE (NEGATIVE); URINE LEUK ESTERASE NEGATIVE (NEGATIVE); URINE NITRITE NEGATIVE (NEGATIVE); URINE PROTEIN TRACE (NEGATIVE)
[2020-01-09 12:05] LABS: HCG,QUALITATIVE URINE Negative
--- NOTE | 2020-01-09 12:30 | PDOC ---
History of Present Illness - General Chief Complaint: Pain Stated Complaint: PELVIC PAIN Time Seen by Provider: 01/09/20 10:43 Past History - Medical History Allergies/Adverse Reactions: Allergies Allergy/AdvReac Type Severity Reaction Status Date / Time No Known Allergies Allergy Verified 01/09/20 10:38 Home Medications: Ambulatory Orders Vitamins (Sjr) - 1 tab PO DAILY 05/19/19 Acetaminophen [Tylenol .Regular Strength -] 500 mg PO Q4H PRN #30 tablet 05/30/19 Ferrous Sulfate [Feosol] 325 mg PO BIDWM #60 tab 05/30/19 Ibuprofen [Motrin -] 600 mg PO Q4H PRN #30 tablet 05/30/19 Vitamins (Sjr) - 1 tab PO DAILY #30 tablet 05/30/19 oxyCODONE HCL [Oxycodone HCl] 5 mg PO Q6H PRN 3 Days #12 tablet MDD 5 06/01/19 Anemia: No Asthma: No Cancer: No Cardiac Disorders: No CVA: No COPD: No DVT: No Dementia: No Diabetes: No Dialysis: No GI Disorders: No Disorders: No HTN: No Hypercholesterolemia: No Kidney Stones: No Liver Disease: No Psychiatric Problems: No Seizures: No Thyroid Disease: No Lung CA: No - Surgical History Abdominal Surgery: No Appendectomy: No Cardiac Surgery: No Cholecystectomy: No Gastric Stapling: No GI Surgery: No Lung Surgery: No Neurologic Surgery: No - Reproductive History Is Patient Now?: No (#): 1 Para: 0 - Immunization History Immunization Up to Date: Yes - Psycho-Social/Smoking History Smoking History: Current every day smoker Have you smoked in the past 12 months: No Information on smoking cessation initiated: No - Substance Abuse Hx (Audit-C & DAST Scrn) How often the patient has a drink containing alcohol: Never Score: In Men: 4 or > Positive; In Women: 3 or > Positive: 0 Screen Result (Pos requires Nsg. Audit-10AR): Negative Review of Systems - Review of Systems Able to Perform ROS?: Yes Comments:: 01/09/20 14:51 CONSTITUTIONAL: Absent: fever, chills, diaphoresis, generalized weakness, malaise, loss of appetite HEENT: Absent: rhinorrhea, nasal congestion, throat pain, throat swelling, difficulty swallowing, mouth swelling, ear pain, eye pain, visual Changes CARDIOVASCULAR: Absent: chest pain, loss of consciousness, palpitations, irregular heart rate, peripheral edema RESPIRATORY: Absent: cough, shortness of breath, dyspnea with exertion, orthopnea, wheezing, stridor, hemoptysis GASTROINTESTINAL: Absent: abdominal pain, abdominal distension, nausea, vomiting, diarrhea, constipation, melena, hematochezia GENITOURINARY: Present: pelvic pain Absent: dysuria, frequency, urgency, hesitancy, hematuria, flank pain, genital pain MUSCULOSKELETAL: Absent: myalgia, arthralgia, joint swelling SKIN: Absent: rash, itching, pallor HEMATOLOGIC/IMMUNOLOGIC: Absent: easy bleeding, easy bruising, lymphadenopathy, frequent infections ENDOCRINE: Absent: unexplained weight gain, unexplained weight loss, heat intolerance, cold intolerance NEUROLOGIC: Absent: headache, focal weakness or paresthesias, dizziness, unsteady gait, seizure, mental status changes, bladder or bowel incontinence PSYCHIATRIC: Absent: anxiety, depression, suicidal or homicidal ideation, hallucinations. Is the patient limited Albanian proficient: No *Physical Exam - Vital Signs Last Vital Signs Temp Pulse Resp BP Pulse Ox 98.1 F 69 18 115/76 100 01/09/20 10:35 01/09/20 10:35 01/09/20 10:35 01/09/20 10:35 01/09/20 10:35 - Physical Exam 01/09/20 13:54 GENERAL: Well developed, well nourished. Awake and alert. No acute distress. ABDOMINAL: Soft. Non-tender. Non-distended. No rebound or guarding. No organomegaly. Normoactive bowel sounds. MUSCULOSKELETAL Normal range of motion at all joints. No bony deformities or tenderness. No CVA tenderness. EXTREMITIES: No cyanosis. No clubbing. No edema. No calf tenderness. SKIN: Warm and dry. Normal capillary refill. No rashes. No jaundice. NEUROLOGICAL: Alert, awake, appropriate. Cranial nerves 2-12 intact. No deficits to light touch and temperature in face, upper extremities and lower extremities. No motor deficits in the in face, upper extremities and lower extremities. Normoreflexic in the upper and lower extremities. Normal speech. Toes are down-going bilaterally. Gait is normal without ataxia. PSYCHIATRIC: Cooperative. Good eye contact. Appropriate mood and affect. PELVIC: External genitalia normal without lesions. Tenderness palpation of the anterior mons pubis. Vaginal vault is clear without blood or discharge. Cervix is long and closed. No cervical motion tenderness. Uterus is nontender and normal in size. Adnexa are nontender and without masses. ED Treatment Course - ADDITIONAL ORDERS Additional order review: Laboratory Results 01/09/20 11:20 Urine Color Yellow Urine Appearance Clear Urine pH 5.5 Ur Specific [place] 1.033 Urine Protein Trace Urine Glucose (UA) Negative Urine Ketones Trace H Urine Blood Negative Urine Nitrite Negative Urine Bilirubin Negative Urine Urobilinogen 1.0 Ur Leukocyte Esterase Negative Urine HCG, Qual Negative Medical Decision Making - Medical Decision Making 01/09/20 13:56 Patient is a 24-year-old female without any past medical history, who presents to the ER with pelvic pain. She states that her lower pelvis hurts to touch. She denies dysuria, recent sexual intercourse or trauma. A/P: lower pelvic pain On exam patient has pain to the mons pubis. Internal pelvic exam is grossly normal. Urine shows no evidence of infection. Culture sent, GC chlamydia sent. Genital culture sent. Unsure of patient's cause of mild pubic pain given absence trauma. Discharge home with OB follow-up. I discussed the physical exam findings, ancillary test results and final diagnoses with the patient. I answered all of the patient's questions. The patient was satisfied with the care received and felt comfortable with the disch arge plan and treatment plan. The Patient agrees to follow up with the primary care physician/specialist within 24-72 hours. Return precautions were given. Discharge - Discharge Information Problems reviewed: Yes Clinical Impression/Diagnosis: Pelvic pain Condition: Stable Disposition: HOME - Admission No - Follow up/Referral Referrals: Lorelei Sosa MD [Primary Care Provider] - - Patient Discharge Instructions Additional Instructions: You were seen for your pelvic pain today. Your urine was negative for infection. You may take Motrin 600 mg every 6 hours for your pain. Please follow-up with your [employer] this week. Return to the ER for any new or worsening symptoms. Including fever, discharge or worsening pain - Post Discharge Activity
== END 2020-01-09 12:56 | disposition home or self-care (01) ==
LOC: JER 10:33
DX: R10.2 Pelvic and perineal pain (principal)
CPT/HCPCS: 36415; 81003; 84703; 87070; 87086; 87205; 87491; 87591; 99283-25

== ENCOUNTER 2022-11-09 16:21 | Emergency (ER) | payer OTHER ==
[2022-11-09 16:43] VITALS: BP 106/71; PULSE 95; RESP 18; TEMP 98.1; BMI 34.2
[2022-11-09 17:47] LABS: EPI CELLS 18 /uL (0-25.1); HYALINE CASTS 1 /uL (0-3.1); URINE APPEARANCE CLEAR; URINE BACTERIA 1008 /uL (0-1359); URINE BILIRUBIN NEGATIVE (NEGATIVE); URINE COLOR YELLOW; URINE GLUCOSE (UA) NEGATIVE (NEGATIVE); URINE KETONE NEGATIVE (NEGATIVE); URINE LEUK ESTERASE 2+ (NEGATIVE); URINE NITRITE NEGATIVE (NEGATIVE); URINE PROTEIN NEGATIVE (NEGATIVE); URINE WBC 229 /uL (0-25.8)
[2022-11-09 17:48] LABS: HCG,QUALITATIVE URINE Negative
[2022-11-09] MEDS ORDERED: NITROFURANTOIN MACROCRYSTAL 50 MG CAPSULE (FP) PO SCH (18:00)
[2022-11-09] MEDS ORDERED: NITROFURANTOIN MACROCRYSTAL 50 MG CAPSULE (FP) PO ONE (18:00)
[2022-11-09] MEDS ORDERED: NITROFURANTOIN MACROCRYSTAL 50 MG CAPSULE (FP) ONE (18:03)
[2022-11-09 18:12] LABS: URINE RBC 45.3 /uL (0-23.9)
== END 2022-11-09 18:07 | disposition home or self-care (01) ==
LOC: JERFT 16:21
DX: N30.01 Acute cystitis with hematuria (principal); R30.0 Dysuria; R35.0 Frequency of micturition; R10.30 Lower abdominal pain, unspecified
CPT/HCPCS: 81003; 84703; 87086; 87186; 99283-25

== ENCOUNTER 2023-02-25 14:52 | Emergency (ER) | payer OTHER ==
[2023-02-25 15:13] VITALS: BP 107/62; PULSE 75; RESP 20; TEMP 98.3; BMI 34.5
[2023-02-25 16:42] LABS: EPI CELLS 19 /uL (0-25.1); HCG,QUALITATIVE URINE Negative; HYALINE CASTS 0 /uL (0-3.1); PH,URINE 7.5 (5.0-8.0); URINE APPEARANCE CLOUDY; URINE BACTERIA 1763 /uL (0-1359); URINE BILIRUBIN NEGATIVE (NEGATIVE); URINE COLOR YELLOW; URINE GLUCOSE (UA) NEGATIVE (NEGATIVE); URINE KETONE TRACE (NEGATIVE); URINE LEUK ESTERASE 3+ (NEGATIVE); URINE NITRITE NEGATIVE (NEGATIVE); URINE PROTEIN 2+ (NEGATIVE); URINE RBC 558 /uL (0-23.9); URINE WBC 6254 /uL (0-25.8)
== END 2023-02-25 18:07 | disposition home or self-care (01) ==
LOC: JERFT 14:52
DX: R35.0 Frequency of micturition (principal); R30.0 Dysuria; N39.0 Urinary tract infection, site not specified
CPT/HCPCS: 81003; 84703; 87086; 87186; 99283-25

== ENCOUNTER 2023-04-04 12:53 | Emergency (ER) | payer OTHER ==
[2023-04-04 13:11] VITALS: BMI 34.4
[2023-04-04 14:12] LABS: EPI CELLS 31 /uL (0-25.1); HCG,QUALITATIVE URINE Negative; HYALINE CASTS 1 /uL (0-3.1); PH,URINE 6.5 (5.0-8.0); URINE APPEARANCE CLEAR; URINE BACTERIA 522 /uL (0-1359); URINE BILIRUBIN NEGATIVE (NEGATIVE); URINE COLOR YELLOW; URINE GLUCOSE (UA) NEGATIVE (NEGATIVE); URINE KETONE NEGATIVE (NEGATIVE); URINE LEUK ESTERASE 1+ (NEGATIVE); URINE NITRITE NEGATIVE (NEGATIVE); URINE PROTEIN NEGATIVE (NEGATIVE); URINE RBC 37 /uL (0-23.9); URINE WBC 18 /uL (0-25.8)
[2023-04-04 14:13] LABS: BASO % 0.6 % (0-2.0); EOS % 1.9 % (0-4.5); HEMOGLOBIN 12.3 GM/dL (10.7-15.3); LYMPH % 36.6 % (8-40); MCH 28.8 pg (25.7-33.7); MCHC 32.5 g/dl (32.0-36.0); MEAN CELL VOLUME 88.6 fl (80-96); MEAN PLT VOLUME 8.7 fl (7.5-11.1); MONO % 5.8 % (3.8-10.2); NEUT % 55.1 % (42.8-82.8); PLATELET COUNT 230 10^3/uL (134-434); RBC 4.29 M/mm3 (3.60-5.2); WHITE BLOOD COUNT 7.2 K/mm3 (4.0-10.0)
[2023-04-04 14:14] VITALS: BP 121/70; PULSE 73; RESP 16; TEMP 98.2
[2023-04-04 15:09] LABS: SYPHILIS W/ RPR CONF NON-REACTIVE (NONREACTIVE)
[2023-04-04 15:38] LABS: HIV INTERPRETATION NEGATIVE (NEGATIVE)
== END 2023-04-04 14:28 | disposition home or self-care (01) ==
LOC: JER 12:53 → JERFT 12:53
DX: Z11.3 Encounter for screening for infections with a predominantly sexual mode of transmission (principal)
CPT/HCPCS: 36415; 81003; 84703; 85025; 86780; 87086; 87389; 87491; 87591; 87661; 99283-25

== ENCOUNTER 2023-09-26 22:52 | Emergency (ER) | payer OTHER ==
[2023-09-26 22:58] VITALS: BP 92/52; PULSE 73; RESP 18; TEMP 98.9; BMI 32.5
== END 2023-09-27 00:53 | disposition home or self-care (01) ==
LOC: JER 22:52
DX: K64.4 Residual hemorrhoidal skin tags (principal); K59.00 Constipation, unspecified
CPT/HCPCS: 99282-25